=== PATIENT | female | born 1955 | race Caucasian/White ===

== ENCOUNTER 2025-06-26 09:08 | Outpatient (OUT) | payer MEDICARE, SELFPAY ==
--- OUTSIDE RECORDS SUMMARY | 2025-06-12 10:50 | XMS_ITS | Encounter Summary ---
Author Organization [facility] Address [address] [place] [address] Care Team Providers Care Plant Equipment Engineer Name Role Phone Cynthia Sy DO Unavailable [phone] Francie Whitten MD Primary Care Provider [phone] Mary Beth Dutta NURSE LDR Unavailable [phone] Reason for Visit * ReasonCommentsPre-op Visit Encounter Details DateTypeDepartmentCare Team (Latest Contact Info)Liwyvvtzvtj81/10/2025 10:50 AM ESTConsult STEFANY [facility] [address] [place] [address] Benjamin Mendoza DO [address] Seth Arriola, [facility]11 Pre-op examination; Complex ovarian cyst; Ovarian cyst, left; Pelvic pain in female; Family history of ovarian cancer; Enlarged ovary; Endometrial polyp Social History Tobacco UseTypesPacks/DayYears UsedDateSmoking Tobacco: NeverSmokeless Tobacco: NeverAlcohol UseStandard Drinks/WeekCommentsYes0 (1 standard drink = 0.6 oz pure alcohol)Social, vacation perhaps once a month caffeine intake: 4 cups of coffee B1300 Health LiteracyAnswerDate RecordedHow often do you need to have someone help you when you read instructions, pamphlets, or other written material from your doctor or pharmacy?Never06/13/2024Humiliation, Afraid, Rape, and Kick questionnaireAnswerDate RecordedWithin the last year, have you been afraid of your partner or ex-partner?No03/05/2023Within the last year, have you been humiliated or emotionally abused in other ways by your partner or ex-partner?No 03/05/2023Within the last year, have you been kicked, hit, slapped, or otherwise physically hurt by your partner or ex-partner?No03/05/2023Within the last year, have you been raped or forced to have any kind of sexual activity by your part ner or ex-partner?No03/05/2023Social Connection and Isolation PanelAnswerDate RecordedIn a typical week, how many times do you talk on the phone with family, friends, or neighbors?More than three times a week06/13/2024How often do you get together with friends or relatives?More than three times a week06/13/2024How often do you attend advent or zoroastrianism services?More than 4 times per year 06/13/2024o you belong to any clubs or organizations such as advent groups, unions, fraternal or athletic groups, or school groups?Yes06/13/2024How often do you attend meetings of the clubs or organizations you belong to?More than 4 times per year06/13/2024re you , , , , never , or living with a partner?Gimgnlv2406/13/2024UDIT-CAnswerDate RecordedQ1: How often do you have a drink containing alcohol?Monthly or less06/13/2024Q2: How many drinks containing alcohol do you have on a typical day when you are drinking?1 or Q3: How often do you have six or more drinks on one occasion?Never06/13/2024Overall Financial Resource Strain (CARDIA)AnswerDate RecordedHow hard is it for you to pay for the very basics like food, housing, medical care, and heating?Not hard at all06/13/2024HQ-2AnswerDate Recorded Patient Health Questionnaire-2 [id number] Occupational Health - Occupational Stress QuestionnaireAnswerDate RecordedDo you feel stress - tense, restless, nervous, or anxious, or unable to sleep at night because your mind is troubled all the time - these days?Not at all06/13/2024Exercise Vital SignAnswerDate RecordedOn average, how many days per week do you engage in moderate to strenuous exercise (like a brisk walk)?7 days06/13/2024On average, how many minutes do you engage in exercise at this level?60 min06/13/2024Hunger Vital SignAnswerDate RecordedWithin the past 12 months, you worried that your food would run out before you got the money to buymore.Never true06/13/2024 Within the past 12 months, the food you bought just didn't last and you didn't have money to get more.Never true06/13/2024RAPARE - TransportationAnswerDate RecordedIn the past 12 months, has lack of transportation kept you from medical appointments or from getting medications?No06/13/2024In the past 12 months, has lack of transportation kept you from meetings, work, or from getting things needed for daily living?No06/13/2024Housing Stability Vital SignAnswerDate RecordedIn the last 12 months, was there a time when you were not able to pay the mortgage or rent on time?No03/05/2023In the last 12 months, how many places have you lived?In the last 12 months, was there a time when you did not have a steady place to sleep or slept in [facility] (including now)?No 03/05/2023Housing Stability Vital SignAnswerDate RecordedIn the last 12 months, was there a time when you were not able to pay the mortgage or rent on time?No 06/13/2024In the past 12 months, how many times have you moved where you were living?t any time in the past 12 months, were you homeless or living in a snf (including now)?No06/13/2024CommentsNoSex and Gender InformationValueDate RecordedSex Assigned at NmsxxBwnybv32/05/2023 11:41 AM EDT Legal BapNrgsqs21/15/2023 7:26 PM EDTGender AdilwthvHihfoy13/15/2023 7:26 PM EDT Sexual LswzfdrxqslSynfgcek80/05/2023 11:41 AM EDTdocumented as of this encounter Last Filed Vital Signs Vital SignReadingTime TakenCommentsBlood Agsaisnc070/80108/12/2024 10:52 AM EST Pulse--Temperature--Respiratory Rate--Oxygen Saturation--Inhaled Oxygen Concentration--Ttccjv25.8 kg (213 lb 6.4 oz)06/12/2025 10:52 AM ESTHeight--Body Mass Index40.321 9:10 AM EDTdocumented in this encounter Progress Notes * Roz Rinaldi - 06/12/2025 10:50 AM EST Reason for Appointment: Patient ID: Darlene Carmona is a 70 y.o. female who presents for Pre-op Visit Patient presents today for Pre Op appointment. Patient is scheduled to undergo Da Alisia assisted Diagnostic Laparoscopy with Bilateral Salpingo-Oophorectomy, possible LI, possible FOE, and D&C Hysteroscopy, possible Myosure on 07/11/[address] Mendoza at [facility]. MEDICATIONS Current Outpatient Medications Medication Instructions aspirin 81 mg, Daily atorvastatin (LIPITOR) 10 mg, Oral, Daily Zopztrc-Efbscjyka-Pfowocy D (CALCIUM 1200+D3 PO) fluticasone (Flonase) 50 MCG/ACT nasal spray SPRAY 2 SPRAYS INTO EACH NOSTRIL IN THE MORNING SHAKE GENTLY Multiple Vitamins-Minerals (Centrum Silver 50+Women) tablet Multiple Vitamins-Minerals (EYE VITAMINS & MINERALS PO) Take by mouth ALLERGIES Allergies Allergen Reactions Shellfish Protein-Containing Drug Products Unknown Pedi-Pre Tape [place] [Wound Dressing Adhesive] Rash Tapes on skin too long causes rash PROBLEMS Active Ambulatory Problems Diagnosis Date Noted History of laparoscopic cholecystectomy 02/27/2023 Mixed hyperlipidemia 02/27/2023 BMI 40.0-44.9, adult ([facility] 03/06/2023 ABDIRIZAK (obstructive sleep apnea) 03/06/2023 Otalgia, left 04/08/2023 Resolved Ambulatory Problems Diagnosis Date Noted Abnormal mammogram 02/27/2023 Excessive daytime sleepiness 02/27/2023 Morbid obesity due to excess calories ([facility]) 02/27/2023 Other chronic pain 02/27/2023 Prediabetes 02/27/2023 Primary osteoarthritis involving multiple joints 02/27/2023 Past Medical History: Diagnosis Date Asymptomatic menopausal state BMI 39.0-39.9,adult Bronchitis Diverticulitis 04/05/2025 DVT (deep venous thrombosis) (HCC) DVT (deep venous thrombosis) ([facility]) 2014 Family history of malignant neoplasm of kidney Family history of malignant neoplasm of ovary Functional dyspepsia Gallstone, sludge, lap cholecystectomy Hemorrhoids 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 current use of anticoagulant Menopause present Obesity Obesity (BMI 30-39.9) Other disturbances of skin sensation Ovarian cyst 04/05/2025 Sinusitis Sleep apnea HISTORY PAST MEDICAL HISTORY SOCIAL HISTORY Past Medical History: Diagnosis Date Asymptomatic menopausal state BMI 39.0-39.9,adult Bronchitis Diverticulitis 04/05/2025 DVT (deep venous thrombosis) ([facility]) right distal lower leg right common femoral,superficial femoral, popliteal, post arthoscopic surgery of left knee DVT (deep venous thrombosis) ([facility]) 2014 Family history of malignant neoplasm of kidney Family history of malignant neoplasm of ovary Functional dyspepsia Gallstone, sludge, lap cholecystectomy Hemorrhoids History of torn meniscus of knee [facility] current use of anticoagulant Menopause present Obesity Obesity (BMI 30-39.9) Other disturbances of skin sensation Ovarian cyst 04/05/2025 Sinusitis Sleep apnea Social History Tobacco Use Smoking status: Never Smokeless tobacco: Never Vaping Use Vaping status: Never Used Substance Use Topics Alcohol use: Yes Comment: Social, vacation perhaps once a month caffeine intake: 4 cups of coffee Drug use: Never FAMILY HISTORY Family History Problem Relation Name Age of Onset Depression Mother Sue Marino Macular degeneration Mother Sue Marino Obesity Mother Sue Marino Ovarian cancer Mother Sue Marino Cancer Mother Sue Marino Heart disease Mother Sue Marino Miscarriages / Stillbirths Mother Sue Marino Vision loss Mother Sue Marino Alcohol abuse Father Bill Smithna, Sr. Other (renal cell carcinoma) Sister Kidney cancer Sister Colon cancer Brother Kidney cancer Brother Tuberculosis Maternal Grandmother Charlene Alpesh Walls Stroke Maternal Grandmother Charlene Betts Titi Colon cancer Maternal Grandfather SURGICAL HISTORY Past Surgical History: Procedure Laterality Date CHOLECYSTECTOMY COLONOSCOPY 08/27/2009 nl /Nena EGD 2014 Grillis MENISCECTOMY Left left/partial MN CLSR RECTOVAGINAL FISTULA ABDOMINAL APPROACH MN LAP,CHOLECYSTECTOMY 10/04/2014 sludge VENOGRAM 01/2015 with femoral TPA infusion WISDOM TOOTH EXTRACTION REVIEW OF SYSTEMS Review of Systems: Review of Systems Constitutional: Negative. HENT: Negative. Eyes: Negative. Respiratory: Negative. Cardiovascular: Negative. Gastrointestinal: Negative. Genitourinary: Positive for dyspareunia and pelvic pain. Musculoskeletal: Negative. Skin: Negative. Neurological: Negative. All other systems reviewed and are negative. Hematological: Negative. Endocrine: Negative. Allergic/Immunologic: Negative. OBJECTIVE Objective: Physical Exam Constitutional: Appearance: Normal appearance. She is well-developed. Cardiovascular: Rate and Rhythm: Normal rate and regular rhythm. Pulmonary: Effort: Pulmonary effort is normal. Breath sounds: Normal breath sounds. Abdominal: General: Bowel sounds are normal. There is no distension. Palpations: Abdomen is soft. Tenderness: There is no abdominal tenderness. There is no guarding or rebound. Musculoskeletal: General: No swelling. Normal range of motion. Right lower leg: No edema. Left lower leg: No edema. Neurological: Mental Status: She is alert and oriented to person, place, and time. Skin: General: Skin is warm and dry. Psychiatric: Mood and Affect: Mood normal. Behavior: Behavior normal. Vitals and nursing note reviewed. Exam conducted with a embroidery designer present. Vitals: Estimated body mass index is 39.87 kg/m?? as calculated from the following: Height as of 05/22/25: 5' 1 . Weight as of 05/22/25: 211 lb. BP: No LMP recorded. Patient is postmenopausal. ASSESSMENT & PLAN ICD-10-CM 1. Pre-op examination Z01.818 2. Complex ovarian cyst N83.299 3. Ovarian cyst, left N83.202 4. Pelvic pain in female R10.20 5. Family history of ovarian cancer Z80.41 6. Enlarged ovary N83.8 7. Endometrial polyp N84.0 Pre Op: Patient and spouse present for Pre-op visit today to review labs and ultrasound results. Explained to patient need for surgical procedure prior to hysterectomy. Patient is doing well but has complaints of pelvic pain, enlarged left ovary with complex ovarian cyst and endometrial polyps found via ultrasound. I have discussed conservative management vs. surgical management with the patient in detail and patient desires surgical management at this time. Patient will undergo Da Alisia assisted Diagnostic Laparoscopy with Bilateral Salpingo- Oophorectomy, possible LI, possible FOE, and D&C Hysteroscopy, possible Myosure on 07/11/2025. Surgical consents were signed, mmc was reviewed, and patient is to proceed to [facility] OR. === Ultrasound Performed on: 05/25/25 === US PELVIC COMPLETE W/ TV FINDINGS: Uterus 7.2 x 3.2 x 6.4 cm Endometrium 5 mm Right Ovary not seen Left Ovary 6.0 x 3.2 x 4.9 cm (see below) - Impression - Normal uterine orientation. Small amount of endometrial fluid, two mildly hyperechogenic nodules (5-13mm) likely endometrial polyps. Right ovary not visualized. Majority of the left ovary is comprised of a homogeneous nonshadowing mildly hyperechogenic area, with no significant cyst formation. IMPRESSION: 1. Enlarged left ovary, abnormal morphology though likely benign. 2. Endometrial findings, likely several polyp and/or polyp aggregates. COMMENT: Given the endometrial and left ovarian findings, pelvic MRI would be of assistance. TRANSCRIBED BY: ELECTRONICALLY SIGNED BY: Kendall Lee MD Follow Up: Patient is to follow up between 1-2 weeks post operative to assess proper healing and recovery fromprocedure. Will also discuss at that time options for further management. Documented by Shaila Clark LPN on behalf of: Benjamin Mendoza DO documented in this encounter Plan of Treatment DateTypeDepartmentCare Team (Latest Contact Info)Lqdpnuxsobw55/02/2025 9:30 AM ESTConsult STEFANY [facility] [address] [place] [id number] Francie Whitten MD [address] [place] [address] documented as of this encounter Visit Diagnoses Diagnosis Pre-op examination Complex ovarian cyst Ovarian cyst, left Other and unspecified ovarian cyst Pelvic pain in female Unspecified symptom associated with female genital organs Family history of ovarian cancer Family history of malignant neoplasm of ovary Enlarged ovary Other noninflammatory disorder of ovary, fallopian tube, and broad ligament Endometrial polyp Polyp of corpus uteri documented in this encounter Additional Health Concerns AssessmentNoted TimePHQ-9 Depression Total Score: 8:00 AM EDT documented as of this encounter Care Teams Team MemberRelationshipSpecialtyStart DateEnd Date Cynthia Sy DO [address] [facility] [address] [place] [address] PCP - [employer]12/01/20 Francie Whitten MD [address] [place], [place] [id number] PCP - GeneralFamily Medicine12/09/23 Mary Beth Dutta NP [address] [place], [place] [id number] Nurse PractitionerFamily Medicine12/09/23documented as of this encounter
--- OUTSIDE RECORDS SUMMARY | 2025-06-26 09:13 | XMS_ITS | Clinical Summary ---
Author Organization [employer] Sys [employer] Address [id number] [address] [place] [address] Care Team Providers Care Food And Beverage Attendant Name Role Phone Gorge Ramos MD Primary Care Provider [phone] Immunizations ImmunizationAdministration DatesNext DueCOVID-19, mRNA, LNP-S, PF, 30mcg/0.3mL Dose10/13/2020,09/22/2020 Family History Medical HistoryRelationNameCommentsBreast cancerNeg Hx Social History Tobacco UseTypesPacks/DayYears UsedDateSmoking Tobacco: Never AssessedChildcare AnswerDate HwniqiwaFvpfdccexDtkfkll80/12/2019EmploymentAnswerDate Recorded DyppgctbveEtdxozl84/12/2019Purpose - LifeAnswerDate RecordedPurpose and direction in fgxvHldmjqc37/11/2021CommentsUnknownSex and Gender InformationValueDate RecordedSex Assigned at BirthNot on fileLegal SexFemale 03/08/2015 11:22 AM EDTGender IdentityNot on fileSexual OrientationNot on file Plan of Treatment Health MaintenanceDue DateLast DoneCommentsDepression Mymlaxhfs47/19/1967Tobacco Tthqvghzx45/19/1967Adult BMI Tezgnyqfg57/19/1973Fall Risk Bckxzmjur36/19/2020 COVID-19 Vaccine ( season)503/, 09/22/2020Influenza Dqgcdbg32/09/2018, 05/08/2018, 04/24/2017, Additional history exists DTaP,Tdap and Td Vaccines (2 - Td or Tdap)7004/24/2017, 01/22/2002RSV ( or age 60+ yrs) (1 - 1-dose 75+ series)2030Zoster (Shingles) MrhsdwaQeyktyipb21/06/2019, 08/15/2018, 07/18/2015 Medical Devices Not on file Insurance Care Teams Team MemberRelationshipSpecialtyStart DateEnd Gorge Ramos MD [address] [place] [address] PCP - GeneralFamily Medicine12/12/16
--- OUTSIDE RECORDS SUMMARY | 2025-06-26 09:13 | XMS_ITS | Clinical Summary ---
Author Organization [facility] Address [address] [place] [address] Care Team Providers Care Chain Saw Driver Name Role Phone Cynthia Sy DO Unavailable [phone] Francie Whitten MD Primary Care Provider [phone] Mary Beth Dutta HEAD CORRECTION OFFICER Unavailable [phone] Allergies Active AllergyReactionsCriticalityNoted DateCommentsWound Dressing AdhesiveRash Low07/10/2023 Tapes on skin too long causes rash Shellfish Protein-Containing Drug XuuhjhsaKwvxcsj53/28/2023 Medications MedicationSigDispense QuantityRefillsLast FilledStart DateEnd DateStatus Multiple Vitamins-Minerals (Centrum Silver 50+Women) tablet Active aspirin 81 MG EC tablet Take 81 mg by mouth in the morning.Active fluticasone (Flonase) 50 MCG/ACT nasal spray Indications:Otalgia, leftSPRAY 2 SPRAYS INTO EACH NOSTRIL IN THE MORNING SHAKE GENTLY 16 mL 1103Active Multiple Vitamins-Minerals (EYE VITAMINS & MINERALS PO) Take by mouthActive Csbyfdq-Ryzalizof-Jmyfvix D (CALCIUM 1200+D3 PO) 06/10/2024ctive atorvastatin (Lipitor) 10 MG tablet Indications:Mixed hyperlipidemiaTAKE 1 TABLET (10 MG) BY MOUTH DAILY. 90 tablet 5Active Active Problems ProblemNoted DateDiagnosed DateOtalgia, left04/08/2023MI 40.0-44.9, adult 03/06/2023OSA (obstructive sleep apnea)03/06/2023 Overview (03/06/2023): compliant with results improve, over 97% compliant fax note to [phone] attn PAP DEPT I have reviewed the objective evidence of adherence to therapy History of laparoscopic jkwjepzwcvajxaf86/28/2023Mixed edvrbgxrldbxss49/28/2023 Assessment & Plan (04/05/2025 11:43 AM EDT): -on a statin Resolved Problems ProblemNoted DateDiagnosed DateResolved DateAbnormal bmytlrbxu15/28/2023 03/06/2023Excessive daytime rpddijjnqf95Morbid obesity due to excess myrakdtd17Other chronic pain Nntwcsjengj80rimary osteoarthritis involving multiple joints Encounters DateTypeDepartmentCare XjpaEqsctkzvlon14/11/2025Telephone [facility] [place] [address] [facility] [place] [address] Francie Whitten MD 06/12/2025 10:50 AM ESTConsult [facility] [address] [place] [phone] Benjamin Mendoza DO Pre-op examination; Complex ovarian cyst; Ovarian cyst, left; Pelvic pain in female; Family history of ovarian cancer; Enlarged ovary; Endometrial polyp06/05/20250338Siibqi45/27/2025Telephone [facility] [address] [facility] [place] [address] Mary Beth Dutta NP 05/25/2025 9:30 AM EDTAncillary Procedure [facility] [address] [place] [address] Ovarian cyst, left; Complex ovarian cyst05/24/20250325Wbuypu51/21/2025External Result Encounter [facility] External Department Unsolicited Benjamin Mendoza DO 05/22/2025 8:50 AM EDTConsult [facility]OM[facility] [address] [place] [address] Benjamin Mendoza DO Ovarian cyst, left; Complex ovarian cyst; Pelvic pain in female; Family history of ovarian kejxka6305/22/2025amboo flowsheet [facility] [address] [place] [address] Benjamin Mendoza DO 05/17/20258260Sdkhee92/08/2025Telephone [facility] [address] [facility] [place] [address] Francie Whitten MD 04/09/2025Refill [facility] [address] [facility] [place] [place] [address] Mary Beth Dutta NP Mixed wrbfweaihjsssn19/03/2025 12:45 PM EDTAncillary Procedure [facility] [address] [place] [address] Left lower quadrant abdominal pain04/05/2025 11:00 AM EDTOffice Visit [facility] [address] [facility] [place] [phone] Mary Beth Dutta NP Left lower quadrant abdominal pain (Primary Dx); Mixed hyperlipidemia ; Body mass index (BMI) 38.0-38.9, adult; Obesity, class Results Follow-Up [facility] [address] [facility] [place] [phone] abdomen pelvis wo IV contrast, Comprehensive metabolic panel, CBC and differential, POCT Urinalysis oibfqyap03/03/2025amboo flowsheet [facility] [address] [facility] [place] [place] [phone] Mary Beth Dutta NP 04/05/20259475Lprbrp87/02/2025Travelfrom Last 3 Months Immunizations ImmunizationAdministration DatesNext DueHep A / Hep B12/01/2022,12/13/2021, 11/13/2021Influenza Whole05/25/2013Influenza, High Dose Seasonal, Preservative Free04/24/2024,05/04/2019Influenza, High-dose Seasonal, Quadrivalent, Preservative Free04/13/2022Influenza, Seasonal, Quadrivalent, Adjuvanted 05/14/2023,05/09/2021Influenza, injectable, vejopedydgau52/29/2014Influenza, injectable, quadrivalent, preservative free05/08/2018,04/24/2017,05/24/2016 Pneumococcal Conjugate PCV 131Pneumococcal Polysaccharide PPSV23 06/05/2021SV, recombinant, protein subunit RSVpreF, adjuvant reconstitu, 120mcg/0.5mL, PF (Arexvy)06/10/2023Td (adult), 5 Lf tetanus toxoid, preservative free, rfhajohr07/22/8817Pgey43/22/2017Zoster, Ztegzketoyb05/06/2019,08/15/2018 Zoster, live07/18/2015 Family History Medical HistoryRelationNameCommentsColon cancerBrotherKidney cancerBrother Alcohol abuseFatherBill Marino, Sr.Colon cancerMaternal GrandfatherStroke Maternal GrandmotherFlorence Alpesh WallsTuberculosisMaternal Grandmother Charlene WallsCancerMotherAlena HannaDepressionMotherAlena HannaHeart diseaseMotherAlena HannaMacular degenerationMotherAlena HannaMiscarriages / StillbirthsMotherAlena HannaObesityMotherAlena HannaOvarian cancerMotherAlena HannaVision lossMotherAlena HannaKidney cancerSisterrenal cell carcinomaSister RelationNameStatusCommentsBrotherDaughterAliveFatherBill Marino, Sr. Maternal GrandfatherMaternal GrandmotherFlorence Alpesh WallsMotherSue Marino DeceasedSisterDeceasedSonAlive Social History Tobacco UseTypesPacks/DayYears UsedDateSmoking Tobacco: NeverSmokeless Tobacco: Never Tobacco Cessation:Counseling Given: Not Answered Alcohol UseStandard Drinks/WeekCommentsYes0 (1 standard drink = 0.6 [...] times a week06/13/2024How often do you attend anabaptist or zoroastrian services?More than 4 times per year 06/13/2024o you belong to any clubs or organizations such as anabaptist groups, unions, fraternal or athletic groups, or school groups?Yes06/13/2024How often do you attend meetings of the clubs or organizations you belong to?More than 4 times per year06/13/2024re you , , , , never , or living with a partner?Vbmqsaq9106/13/2024UDIT-CAnswerDate RecordedQ1: How often do you have a [...] hard at all06/13/2024HQ-2AnswerDate Recorded Patient Health Questionnaire-2 Eulsy922[facility] [place] of Occupational Health - Occupational Stress QuestionnaireAnswerDate [...] steady place to sleep or slept in ashelter (including now)?No 03/05/2023Housing Stability Vital SignAnswerDate RecordedIn the last 12 months, was there a time when you were not able to pay the mortgage or rent on time?No 06/13/2024In the past 12 months, how many times have you moved where you were living?011/11/2024At any time in the past 12 months, were you homeless or living in a alf (including now)?No4CommentsNoSex and Gender InformationValueDate RecordedSex Assigned at RezmyYtjpgp62/05/2023 11:41 AM EDT Legal ZpeYobhud98/15/2023 7:26 PM EDTGender KkfuhoapCcweki35/15/2023 7:26 PM EDT Sexual NjojtoheqwnLjkfnojz57/05/2023 11:41 AM EDT Last Filed Vital Signs Vital SignReadingTime TakenCommentsBlood Euajybcu154/8011 10:52 AM EST Cpfmu2100 11:01 AM UDNElclggscvch01.1 ??C (96.9 ??F)03/06/2023 8:31 AM EDTRespiratory Tofj398612/09/2023 1:00 PM EDTOxygen Vatjlcyyni91%04/05/2025 11:01 AM EDTInhaled Oxygen Concentration--Xdldna41.8 kg (213 lb 6.4 oz)06/12/2025 10:52 AM QMWOrjkiz748.9 cm (5' 1 )05/22/2025 9:10 AM EDTBody Mass Index40.32 05/22/2025 9:10 AM EDT Plan of Treatment DateTypeDepartmentCare Team (Latest Contact Info)Djakqqfuzir94/02/2025 9:30 AM ESTConsult [facility] [address] [place] [phone] Francie Whitten MD [address] [place] [address] Health MaintenanceDue DateLast DoneCommentsCT Cjfxgqnrmrxj1955FIT 1955FOBT1955 1890Uksudlisbdvlr28/19/2876Eotqknpsqny40/25/ COVID-19 Vaccine ( season)/11/2024, 11/08/2024, 04/24/2024, Additional history existsMedicare Annual Wellness (AWV)01/11/2026 01/11/2025, 01/11/2025, 12/09/2023, Additional history bllwgeRztfjlzcw07/03/2026 02/02/2025, 02/01/2024, 01/29/2023, Additional history existsColorectal Cancer Nphfzcfak62/15/2027FIT-DNA7003/17/2024, 03/13/2021, 03/03/2018, Additional history existsPneumococcal Vaccine: 65+ UpqhjJivgpbkaq75/03/2021, 05/21/2020Influenza JszxqnrAgmefvgkr34/04/2025, 04/24/2024, 05/14/2023, Additional history exists Procedures Procedure NamePriorityDate/TimeAssociated DiagnosisCommentsUS PELVIC COMPLETE W/ GNKbjyhfd94/23/2025 10:14 AM EDT Ovarian cyst, left Complex ovarian cyst [place] 695Gxhrszv08/21/2025 9:11 AM EDT HCG, TOTAL, UJKrzraqz95/21/2025 9:11 AM EDT CVFXtdcfsy66/21/2025 9:11 AM EDT ALPHA FETOPROTEIN, TUMOR JIIOQZCkjczyg04/21/2025 9:11 AM EDT LACTATE DEHYDROGENASE, EPWJNQYHSONocyvrn75/21/2025 9:[address] ABDOMEN PELVIS WO IV CMLETNASEQNY57/03/2025 12:51 PM EDT Left lower quadrant abdominal pain POCT URINALYSIS VIEYVNUOOelazbo56/03/2025 11:40 AM EDT Left lower quadrant abdominal pain CBC (INCLUDES DIFF/PLT)Guklfxs0204/05/2025 11:18 AM EDT Left lower quadrant abdominal pain COMPREHENSIVE METABOLIC GYIVZVcjetuw34/10/2024 11:18 AM EDT Left lower quadrant abdominal pain BI MAMMOGRAM SCREENING TOMOSYNTHESIS KCIIKJXTXNfzkyep41/03/2025 8:47 AM EDT Encounter for screening mammogram for malignant neoplasm of breast LAB [facility]?? COLON CANCER AMBWZWTuhlcvi01/15/2024 10:05 AM EDT Encounter for screening for malignant neoplasm of colon from Last 3 Months or Most Recently Relevant to Health Maintenance Results * US Pelvis w/ TV (05/25/2025 10:14 AM EDT)Anatomical RegionLateralityModality PelvisUltrasoundSpecimen (Source)Anatomical Location / LateralityCollection Method / VolumeCollection TimeReceived Time05/25/2025 3:13 PM EDT Impressions 05/26/2025 7:27 AM EDT Normal uterine orientation. Small amount of endometrial fluid, two mildly hyperechogenic nodules (5-13mm) likely endometrial polyps. Right ovary not visualized. ? Majority of the left ovary is comprised of a homogeneous nonshadowing mildly hyperechogenic area, with no significant cyst formation. IMPRESSION: 1. ??Enlarged left ovary, abnormal morphology though likely benign. 2. ??Endometrial findings, likely several polyp and/or polyp aggregates. COMMENT: Given the endometrial and left ovarian findings, pelvic MRI would be of assistance. TRANSCRIBED BY: ? ELECTRONICALLY SIGNED BY: Kendall Lee MD Narrative 05/26/2025 7:27 AM EDT FINDINGS: Uterus ? 7.2 x 3.2 x 6.4 cm Endometrium ??5 mm Right Ovary ?not seen Left Ovary ?6.0 ??x 3.2 ??x 4.9 cm (see below) Procedure Note Kendall Lee MD - 05/26/2025 FINDINGS: Uterus 7.2 x 3.2 x 6.4 cm Endometrium 5 mm Right Ovary not seen Left Ovary 6.0 x 3.2 x 4.9 cm (see below) IMPRESSION: Normal uterine orientation. Small amount of endometrial fluid, twomildly hyperechogenic nodules (5-13mm) likely endometrial polyps. Right ovary not visualized. Majority of the left ovary is comprised of a homogeneous nonshadowingmildly hyperechogenic area, with no significant cyst formation. IMPRESSION: 1. Enlarged left ovary, abnormal morphology though likely benign. 2. Endometrial findings, likely several polyp and/or polyp aggregates. COMMENT: Given the endometrial and left ovarian findings, pelvic MRI wouldbe of assistance. TRANSCRIBED BY: ELECTRONICALLY SIGNED BY: Kendall Lee MD Authorizing ProviderResult TypeResult StatusCorey Reji [facility] US PROCEDURESFinal Result * AFP tumor marker (05/23/2025 9:11 AM EDT)ComponentValueRef RangeTest Method Analysis TimePerformed AtPathologist SignatureALPHA FETOPROTEIN, TUMOR MARKER 2.6ng/mLQUESTComment: Reference Range: <6.1 The use of AFP as a tumor marker in females is not recommended. This test was performed using the Dov Roxann chemiluminescent method. Values obtained from different assay methods cannot be used interchangeably. AFP levels, regardless of value, should not be interpreted as absolute evidence of the presence or absence of disease. Specimen (Source)Anatomical Location / LateralityCollection Method / Volume Collection TimeReceived Time05/23/2025 9:11 AM EDT1 9:11 AM EDT Narrative Resulting Agency Comment Performing Organization Information ?Site ID: QPT ?Name: [employer] [facility] ?Address: [address] [place] [phone] ?Director: Bj Ambriz MD Authorizing ProviderResult TypeResult StatusCorey Reji [facility] BLOOD ORDERABLES Final ResultPerforming OrganizationAddressCity/State/ZIP CodePhone Number QUEST * [place] 125 (05/23/2025 9:11 AM EDT)ComponentValueRef RangeTest MethodAnalysis Time Performed AtPathologist SignatureCA 1257<35 U/mLQUESTComment: This test was performed using the Siemens Chemiluminescent method. Values obtained from different assay methods cannot be used interchangeably. CA 125 levels, regardless of value, should not be interpreted as absolute evidence of the presence or absence of disease. Specimen (Source)Anatomical Location / LateralityCollection Method / Volume Collection TimeReceived Time05/23/2025 9:11 AM EDT1 9:11 AM EDT Narrative Resulting Agency Comment Performing Organization Information ?Site ID: QPT ?Name: [employer] [facility] ?Address: [address] [place] [address] ?Director: Bj Ambriz MD Authorizing ProviderResult TypeResult StatusCorey Reji [facility] BLOOD ORDERABLES Final ResultPerforming OrganizationAddWills [facility] CodePhone Number [facility] * hCG, quantitative, (05/23/2025 9:11 AM EDT)ComponentValueRef Range Test MethodAnalysis TimePerformed AtPathologist SignatureHCG, TOTAL, QN<5 mIU/mLQUESTComment: ?Reference Range Non or premenopausal <5 Postmenopausal <10 Values from different assay methods may vary. The use of this assay to monitor or to diagnose patients with cancer or any condition unrelated to has not been cleared or approved by the FDA or the color blender of the assay. Specimen (Source)Anatomical Location / LateralityCollection Method / Volume Collection TimeReceived Time05/23/2025 9:11 AM EDT1 9:11 AM EDT Narrative Resulting Agency Comment Performing Organization Information ?Site ID: QPT ?Name: [employer] [facility] ?Address: [address] [place] [address] ?Director: Bj Ambriz MD Authorizing ProviderResult TypeResult StatusCorey Reji [facility] BLOOD ORDERABLES Final ResultPerforming OrganizationAddressty/State/[facility] CodePhone Number [facility] * Lactate dehydrogenase, isoenzymes (05/23/2025 9:11 AM EDT)ComponentValueRef RangeTest MethodAnalysis TimePerformed AtPathologist MsvmxomtbXW64844 - 32 % XHOSWXY99067 - 42 %PMRRIMM42699 - 30 %AAAQKMH566 - 13 %BBOZWYW114 - 18 %QUEST INTERPRETATIONCANCELEDQUESTComment:Result canceled by the ancillary.Specimen (Source)Anatomical Location / LateralityCollection Method / VolumeCollection TimeReceived Time05/23/2025 9:11 AM EDT1 9:11 AM EDT Narrative Resulting Agency Comment Performing Organization Information ?Site ID: AMD ?Name: [employer] [place] ?Address: [address] [place] [address] Dr [place], [place] ?Director: Isaac Patterson M.D.,PhD Authorizing ProviderResult TypeResult StatusCorey Reji [facility] BLOOD ORDERABLES Final ResultPerforming OrganizationAddressty/State/ZIP CodePhone Number [facility] * (ABNORMAL) CEA (05/23/2025 9:11 AM EDT)ComponentValueRef RangeTest Method Analysis TimePerformed AtPathologist SignatureCEA4.4(H)See Note: ng/mLQUEST Comment: Reference Range: Non-Smoker: <2.5 Smoker: <5.0 This test was performed using the Siemens chemiluminescent method. Values obtained from different assay methods cannot be used interchangeably. CEA levels, regardless of value, should not be interpreted as absolute evidence of the presence or absence of disease. Specimen (Source)Anatomical Location / LateralityCollection Method / Volume Collection TimeReceived Time05/23/2025 9:11 AM EDT1 9:11 AM EDT Narrative Resulting Agency Comment Performing Organization Information ?Site ID: QPT ?Name: [employer] [facility] ?Address: [address] [place] [phone] ?Director: Bj Ambriz MD Authorizing ProviderResult TypeResult StatusCorey Reji [facility] BLOOD ORDERABLES Final ResultPerforming OrganizationAddressCity/State/ZIP CodePhone Number [facility] * CT abdomen pelvis wo IV contrast (04/05/2025 12:51 PM EDT)Anatomical Region LateralityModalityBody, Pelvis, AbdomenComputed TomographySpecimen (Source) Anatomical Location / LateralityCollection Method / VolumeCollection Time Received Time04/05/2025 1:04 PM EDT Impressions 04/05/2025 1:10 PM EDT Diverticulosis, distal descending colon and sigmoid colon with acute diverticulitis. 6.1 x 3.5 cm left adnexal cyst, most likely ovarian in etiology. Grade 1 L4 spondylolisthesis. Cholecystectomy. All CT scans at this facility use dose modulation, iterative reconstruction, and/or weight based dosing when appropriate to reduce radiation dose to as low as reasonably achievable. ELECTRONICALLY SIGNED BY: Gustavo Zamora MD Narrative 04/05/2025 1:[address] of the Abdomen and Pelvis without intravenous contrast medium History: Left lower quadrant pain since weekend. Technical Factors: CT imaging of the abdomen and pelvis were obtained and formatted as 5 mm contiguous axial images from the domes of the diaphragm to the symphysis pubis. ??Sagittal and coronal reconstructions were also obtained. Comparison: None.. Findings: Lower chest: Cardiac size normal. No pericardial effusion. No coronary artery calcification. Scarring versus subsegmental atelectatic change, right lung base. Liver: ??Normal in size, shape, and attenuation. ?? Bile Ducts: ??Normal in caliber. Gallbladder: Surgically absent. Pancreas: ??Normal without masses, cysts, ductal dilatation or calcification. Spleen: ??Normal in size without masses or calcifications. ??No splenules. Kidneys: ??Normal in size and enhancement. ??No hydronephrosis, masses, or stones. Adrenals: ??Normal. Small bowel: ??Normal in caliber. Appendix: ??Normal. Colon: ??Normal in caliber. Diverticular change distal descending colon and proximal sigmoid colon with mild pericolonic fat stranding at junction of descending and sigmoid colon (series 2, images 46through 56, series 300, images 42 through 50). Peritoneum: ??No ascites, free air, or fluid collections. Vessels: ??Aorta normal in course and caliber. ?? Portal vein, splenic vein, superior mesenteric vein are patent. Lymph nodes: ?? Retroperitoneal: ??No enlarged retroperitoneal lymph nodes. Mesenteric: ??No enlarged mesenteric lymph nodes. Pelvic: No enlarged pelvic lymph nodes. Ureters: Normal in course and caliber. No calcifications. Bladder: No wall thickening. Partially decompressed. Reproductive organs: 6.1 x 3.5 cm left adnexal cyst. Abdominal Wall: ??No hernia identified. No diastasis of rectus musculature. ?? No edema or masses. Bones: ??No bone lesions. 4 mm anterolisthesis L4 on L5.. No post operative changes. Procedure Note Gustavo Zamora MD - 04/05/2025 CT of the Abdomen and Pelvis without intravenous contrast medium History: Left lower quadrant pain since weekend. Technical Factors: CT imaging of the abdomen and pelvis were obtained and formatted as 5 mm contiguous axial images from the domes of the diaphragm to the symphysispubis. Sagittal and coronal reconstructions were also obtained. Comparison: None.. Findings: Lower chest: Cardiac size normal. No pericardial effusion. No coronaryartery calcification. Scarring versus subsegmental atelectatic change,right lung base. Liver: Normal in size, shape, and attenuation. Bile Ducts: Normal in caliber. Gallbladder: Surgically absent. Pancreas: Normal without masses, cysts, ductal dilatation orcalcification. Spleen: Normal in size without masses or calcifications. No splenules. Kidneys: Normal in size and enhancement. No hydronephrosis, masses, orstones. Adrenals: Normal. Small bowel: Normal in caliber. Appendix: Normal. Colon: Normal in caliber. Diverticular change distal descending colon and proximal sigmoid colon with mild pericolonic fat stranding at junction of descending and sigmoid colon (series 2, images 46 through 56, series 300,images 42 through 50). Peritoneum: No ascites, free air, or fluid collections. Vessels: Aorta normal in course and caliber. Portal vein, splenic vein,superior mesenteric vein are patent. Lymph nodes: Retroperitoneal: No enlarged retroperitoneal lymph nodes. Mesenteric: No enlarged mesenteric lymph nodes. Pelvic: No enlarged pelvic lymph nodes. Ureters: Normal in course and caliber. No calcifications. Bladder: No wall thickening. Partially decompressed. Reproductive organs: 6.1 x 3.5 cm left adnexal cyst. Abdominal Wall: No hernia identified. No diastasis of rectus musculature. No edema or masses. Bones: No bone lesions. 4 mm anterolisthesis L4 on L5.. No post operative changes. IMPRESSION: Diverticulosis, distal descending colon and sigmoid colon with acute diverticulitis. 6.1 x 3.5 cm left adnexal cyst, most likely ovarian in etiology. Grade 1 L4 spondylolisthesis. Cholecystectomy. All CT scans at this facility use dose modulation, iterativereconstruction, and/or weight based dosing when appropriate to reduceradiation dose to as low as reasonably achievable. ELECTRONICALLY SIGNED BY: Gustavo Zamora MD Authorizing ProviderResult TypeResult StatusSaraInland Valley Regional Medical Centerpfer NPIMG CT PROCEDURES Final Result * POCT Urinalysis dipstick (04/05/2025 11:40 AM EDT)ComponentValueRef RangeTest MethodAnalysis TimePerformed AtPathologist SignatureColor, UAYellowClarity, UA ClearGlucose, UANegativeNegative - 2000(110) ++++ mg/dLBilirubin, UANegative Negative - 4(70) +++ mg/dLKetones, UANegativeNegative - 160(16) ++++ mg/dLSpec Grav, UA1.0001 - 1.03Blood, UANegativeNegative - 50 Gian/mcLpH, UA6.55 - 9 Protein, UANegativeNegative - 2000(20) ++++ mg/dLUrobilinogen, UA0.20.2 - 12 mg/dLLeukocytes, UANegativeNegative - 500+++ Juan Ramon/mcLNitrite, UANegative Negative - PositiveSpecimen (Source)Anatomical Location / LateralityCollection Method / VolumeCollection TimeReceived HnpxKzvfu65/03/2025 11:40 AM EDT Narrative Authorizing ProviderResult TypeResult StatusSaBayCare Alliant HospitalPOINT OF CARE TEST ENTER/EDIT ORDERABLESFinal Result * CBC and differential (04/05/2025 11:18 AM EDT)ComponentValueRef RangeTest MethodAnalysis TimePerformed AtPathologist SignatureWHITE BLOOD CELL COUNT6.2 3.8 - 10.8 Thousand/uLQUESTRED BLOOD CELL COUNT4.253.80 - 5.10 Million/uLQUEST FJUPSRNALD57.911.7 - 15.5 g/lNVIJUUTJBBSRMCQE70.135.0 - 45.0 %LFQMEQTP55.480.0 - 100.0 eHQWOSDGKC06.427.0 - 33.0 nfVWRZYKYXO45.232.0 - 36.0 g/dLQUESTComment: For adults, a slight decrease in the calculated MCHC value (in the range of 30 to 32 g/dL) is most likely not clinically significant; however, it should be interpreted with caution in correlation with other red cell parameters and the patient's clinical condition. RDW13.911.0 - 15.0 %QUESTPLATELET CXIKZ558201 - 400 Thousand/uLQUESTMPV9.97.5 - 12.5 fLQUESTABSOLUTE NEUTROPHILS3,8691,500 - 7,800 cells/uLQUESTABSOLUTE LYMPHOCYTES1,426462 - 3,900 cells/uLQUESTABSOLUTE UNPIAOOZH078159 - 950 cells/uL QUESTABSOLUTE CDWEPKSDSLT74097 - 500 cells/uLQUESTABSOLUTE BQHPGYBZT565 - 200 cells/zAXMPXGLARVPZKUHRL62.4%PYTHDOZPPMEYRDQO15.5%QUESTMONOCYTES8.0%QUEST EOSINOPHILS2.1%QUESTBASOPHILS1.0%QUESTSpecimen (Source)Anatomical Location / LateralityCollection Method / VolumeCollection TimeReceived TimeBloodVenous blood specimen / Szupwtd9504/05/2025 11:18 AM EDT04/05/2025 11:18 AM EDT Narrative Resulting Agency Comment Performing Organization Information ?Site ID: QPT ?Name: [employer] [facility] ?Address: [address] [place] [phone] ?Director: Bj Ambriz MD Authorizing ProviderResult TypeResult StatusSalinda Dutta KRISTI BLOOD ORDERABLES Final ResultPerforming OrganizationAddressCity/State/ZIP CodePhone Number QUEST * Comprehensive metabolic panel (04/05/2025 11:18 AM EDT)ComponentValueRef Range Test MethodAnalysis TimePerformed AtPathologist TbygbrmjeYyjzvly9145 - 99 mg/dLQUESTComment: ? Fasting reference interval RQR783 - 25 mg/dLQUESTCreatinine0.870.60 - 1.00 mg/gFTWECAEAAW28> OR = 60 mL/min/1.45k7ZPTBIJVH/CREATININE RATIOSEE NOTE:6 - (calc)QUESTComment: ?? Not Reported: BUN and Creatinine are within ?? reference range. ? Kdfjae855893 - 146 mmol/LQUESTPotassium, Bld4.23.5 - 5.3 mmol/KXOUZLSosqlzds496 98 - 110 mmol/LQUESTCarbon Tmkcayx7436 - 32 mmol/LQUESTCalcium9.28.6 - 10.4 mg/dLQUESTPROTEIN, TOTAL6.96.1 - 8.1 g/dLQUESTALBUMIN4.53.6 - 5.1 g/dLQUEST GLOBULIN2.41.9 - 3.7 g/dL (calc)QUESTALBUMIN/GLOBULIN RATIO1.91.0 - 2.5 (calc) QUESTBILIRUBIN, TOTAL0.70.2 - 1.2 mg/dLQUESTALKALINE ABSCILOJZPB5231 - 153 U/L JVEYTYEL2376 - 35 U/PJCDBDDEY359 - 29 U/LQUESTSpecimen (Source)Anatomical Location / LateralityCollection Method / VolumeCollection TimeReceived TimeBlood Venous blood specimen / Eczlzme7204/05/2025 11:18 AM EDT04/05/2025 11:18 AM EDT Narrative Resulting Agency Comment Performing Organization Information ?Site ID: QPT ?Name: [employer] [facility] ?Address: [address] [place] [phone] ?Director: Bj Ambriz MD Authorizing ProviderResult TypeResult StatusSauniversity hospitals [facility] BLOOD ORDERABLES Final ResultPerforming OrganizationAddressCity/State/ZIP CodePhone Number QUEST * Bilateral screening mammogram with tomosynthesis (02/02/2025 8:47 AM EDT) Anatomical RegionLateralityModalityBreastBilateralMammographySpecimen (Source) Anatomical Location / LateralityCollection Method / VolumeCollection Time Received Time02/02/2025 11:02 AM EDT Impressions 02/02/2025 11:06 AM EDT Impression: No specific evidence of malignancy seen in either breast. BIRADS 2 - Benign Findings DENSITY: The breasts are almost entirely fatty. FOLLOW-UP: Routine Screening Mammogram ELECTRONICALLY SIGNED BY: Ancelmo Rangel M.D. Narrative 02/02/2025 11:06 AM EDT Examination: BI MAMMOGRAM SCREENING TOMOSYNTHESIS BILATERAL Clinical History: screening Technique: Screening digital mammography study of both breasts was performed with 2-D and 3-D tomosynthesis imaging. Study was compared to the prior exam dated 02/01/2024. Findings: There is no evidence of interval dominant spiculated mass, grouped microcalcifications, or skin thickening which would be suggestive of malignancy. ?? Procedure Note Ancelmo Rangel MD - 02/02/2025 Examination: BI MAMMOGRAM SCREENING TOMOSYNTHESIS BILATERAL Clinical History: screening Technique: Screening digital mammography study of both breasts wasperformed with 2-D and 3-D tomosynthesis imaging. Study was compared tothe prior exam dated 02/01/2024. Findings: There is no evidence of interval dominant spiculated mass,grouped microcalcifications, or skin thickening which would be suggestiveof malignancy. IMPRESSION: Impression: No specific evidence of malignancy seen in either breast. BIRADS 2 - Benign Findings DENSITY: The breasts are almost entirely fatty. FOLLOW-UP: Routine Screening Mammogram ELECTRONICALLY SIGNED BY: Ancelmo Rangel M.D. Authorizing ProviderResult TypeResult StatusSaraKaiser Permanente Medical Center NPIM BI PROCEDURES Final Result * Cologuard?? colon cancer screening (03/17/2024 10:05 AM EDT)ComponentValueRef RangeTest MethodAnalysis TimePerformed AtPathologist SignatureNONINV COLON CA DNA+OCC BLD SCRN STL-BMVNvxwosacRxhqbgzh05/20/2024 8:45 PM EDTEXNurseBuddy (CLIA #:[id number])Comment: NEGATIVE TEST RESULT. A negative Cologuard result indicates a low likelihood that a colorectal cancer (CRC) or advanced adenoma (adenomatous polyps with more advanced pre-malignant features) ??is present. The chance that a person with a negative Cologuard test has a colorectal cancer is less than 1in 1500 (negative predictive value >99.9%) or has an advanced adenoma is less than 5.3% (negative predictive value 94.7%). These data are based on a prospective cross-sectional study of 10,000individuals at average risk for colorectal cancer who were screened with both Cologuard and colonoscopy. (Tad Scott. et al, N Engl J Med 2014;370(14):4118-4835) The normal value (reference range) for this assay is negative. COLOGUARD RE-SCREENING RECOMMENDATION: Periodic colorectal cancer screening is an important part ofpreventive healthcare for asymptomatic individuals at average risk for colorectal cancer. ??Following a negative Cologuard result, the [place] [employer] Society and U.S. Multi-Society Task Force screening guidelines recommend a Cologuard re-screening interval of 3 years. References: [place] [employer] Guideline for Colorectal Cancer Screening: https://www.cancer.or g/cancer/bfiok-bfziyx-hcptge/mfhnkcnks-fcjvjguui-aaxplrx/acs-recommendations.htm serenity WOOD, Nish MAYER, Corinna DOMINGO, Colorectal Cancer Screening: Recommendations for Physicians and Patients from the U.S. Multi-Society Task Force on Colorectal Cancer Screening , Am J Gastroenterology 2017; 112:5413-5451. TEST DESCRIPTION: Composite algorithmic analysis of stool DNA-biomarkers with hemoglobin immunoassay. ?? Quantitative values of individual biomarkers are not reportable and are not associated with individual biomarker result reference ranges. Cologuard is intended for colorectal cancer screening ofadults of either sex, 45 years or older, who are at average-risk for colorectal cancer (CRC). Cologuard has been approved for use by the U.S. FDA. The performance of Cologuard was established in a cross sectional study of average-risk adults aged 50-84. Cologuard performance in patients ages 45 to 49 years was estimated by sub-group analysis of near-age groups. Colonoscopies performed for a positive result may find as the most clinically significant lesion: colorectal cancer [4.0%], advanced adenoma (including sessile serrated polyps greater than or equal to 1cm diameter) [20%] or non- advanced adenoma [31%]; or no colorectal neoplasia [45%]. These estimates are derived from a prospective cross-sectional screening study of 10,000 individuals at average risk for colorectal cancer who were screened with both Cologuard and colonoscopy. (Tad Ramirez al, N Engl J Med 2014;370(14):8180-7491.) Cologuard may produce a false negative or false positive result (no colorectal cancer or precancerous polyp present at colonoscopy follow up). A negative Cologuard test result does not guarantee the absence of CRC or advanced adenoma (pre-cancer). The current Cologuard screening interval is every 3 years. ([place] [employer] and U.S. Multi-Society Task Force). Cologuard performance data in a 10,000 patient pivotal study using colonoscopy as the reference method can be accessed at the following location: www.[employer]/results. Additional description of the Cologuard test process, warnings and precautions can be found at www.cologuard.com. Specimen (Source)Anatomical Location / LateralityCollection Method / Volume Collection TimeReceived TimeStool specimen (specimen)03/17/2024 10:05 AM EDT 03/18/2024 1:17 PM EDT Narrative Authorizing ProviderResult TypeResult StatusSalinda Dutta NPLAB MOLECULAR DIAGNOSTICS ORDERABLESFinal ResultPerforming OrganizationAddressCity/State/ZIP CodePhone Number [employer] (CLIA #:[id number]) [address] [place] [address], from Last 3 Months or Most Recently Relevant to Health Maintenance Insurance Advance Directives TypeDate RecordedPatient RepresentativeExplanationAdvance Directives and Living Will Living will and POA Care Teams Team MemberRelationshipSpecialtyStart DateEnd Date Cynthia Sy DO [address] [facility] [address] [place] [phone] PCP - [employer]12/01/20 Francie Whitten MD [address] [place] [address] PCP - GeneralFamily Medicine12/09/23 Mary Beth Dutta NP [address] [place] [address] Nurse PractitionerEmory Johns Creek Hospital12/09/23
--- OUTSIDE RECORDS SUMMARY | 2025-06-26 09:13 | XMS_ITS | Encounter Summary ---
Author Organization [facility] Address [address] [place] [address] Care Team Providers Care Professional Sports Scout Name Role Phone Cynthia Sy Unavailable [phone] Francie Whitten MD Primary Care Provider [phone] Mary Beth Dutta NP Unavailable [phone] Encounter Details DateTypeDepartmentCare Team (Latest Contact Info)Qfzqyzeksgp55/21/2025External Result Encounter [facility] Unsolicited Benjamin Mendoza, DO [address]iz [place], [place] [id number] Social History Tobacco UseTypesPacks/DayYears UsedDateSmoking Tobacco: NeverSmokeless [...] sexual activity by your part ner or ex-partner?03/05/2023Social Connection and Isolation PanelAnswerDate RecordedIn a typical week, how many times do you talk on the phone with family, friends, or neighbors?More than three times a week06/13/2024How often do you get together with friends or relatives?More than three times a week06/13/2024How often do you attend quaker or jainism services?More than 4 times per year 06/13/2024o you belong to any clubs or organizations such as quaker groups, unions, fraitembase or athletic groups, or school groups?Yes06/13/2024How often do you attend meetings of the clubs or organizations you belong to?More than 4 times per year06/13/2024re you , , , , never , or living with a partner?Rccmjtg7006/13/2024UDIT-CAnswerDate RecordedQ1: How often do you have a [...] hard at all06/13/2024HQ-2AnswerDate Recorded Patient Health Questionnaire-2 Eqgsc830[facility] [place] of Occupational Health - Occupational Stress QuestionnaireAnswerDate RecordedDo you feel stress - tense, restless, nervous, or anxious, or unable to sleep at night because your mind is troubled all the time - these days?Not at all06/13/2024Exercise Vital SignAnswerDate RecordedOn average, how many days per week do you engage in moderate to strenuous exercise (like a brisk walk)?7 days11/11/2024On average, how many minutes do you engage [...] steady place to sleep or slept in [facility] (including now)?No 03/05/2023Housing Stability Vital SignAnswerDate RecordedIn the last 12 months, was there a time when you were not able to pay the mortgage or rent on time?No 06/13/2024In the past 12 months, how many times have you moved where you were living?4At any time in the past 12 months, were you homeless or living in a nursing home (including now)?No06/13/2024CommentsNoSex and Gender InformationValueDate RecordedSex Assigned at SrvoyXhlelg96/05/2023 11:41 AM EDT Legal RoxFroira70/15/2023 7:26 PM EDTGender AlpunipdKukhsx47/15/2023 7:26 PM EDT Sexual UpnaofzztonCqoqgpou19/05/2023 11:41 AM EDTdocumented as of this encounter Plan of Treatment DateTypeDepartmentCare Team (Latest Contact Info)Awbfcykziui21/02/2025 9:30 AM ESTConsult STEFANY [facility] [address] [place] [phone] Francie Whitten MD [address] [place] [address] documented as of this encounter Procedures Procedure NamePriorityDate/TimeAssociated DiagnosisCommentsALPHA FETOPROTEIN, TUMOR TQVHFWGfcwwsg48/21/2025 9:11 AM EDT [place] 069Nekmqzz60/21/2025 9:11 AM EDT HCG, TOTAL, VXVdppsvl79/21/2025 9:11 AM EDT LACTATE DEHYDROGENASE, MCYDIQJMRWGuvtrqt64/21/2025 9:11 AM EDT JHTEbsciup92/21/2025 9:11 AM EDT documented in this encounter Results * CA 125 (05/23/2025 9:11 AM EDT)ComponentValueRef [...] Performing Organization Information ?Site ID: QPT ?Name: [employer] [facility] ?Address: [address] [place] [address], [address] [place] [phone] ?Director: Bj Ambriz MD Authorizing ProviderResult TypeResult StatusCorey Reji BRAVO BLOOD ORDERABLES Final ResultPerforming OrganizationAddressCity/State/ZIP CodePhone Number QUEST * hCG, quantitative, (05/23/2025 9:11 AM EDT)ComponentValueRef Range Test MethodAnalysis TimePerformed AtPathologist SignatureHCG, TOTAL, QN<5 mIU/mLQUESTComment: ?Reference Range Non or premenopausal <5 Postmenopausal <10 Values from different assay methods may vary. The use of this assay to monitor or to diagnose patients with cancer or any condition unrelated to has not been cleared or approved by the FDA or the tree deadener of the assay. Specimen (Source)Anatomical Location / LateralityCollection Method / Volume Collection TimeReceived Time05/23/2025 9:11 AM EDT1 9:11 AM EDT Narrative Resulting Agency Comment Performing Organization Information ?Site ID: QPT ?Name: [facility] ?Address: [address] [place] [address], [address] [place] [phone] ?Director: Bj Ambriz MD Authorizing ProviderResult TypeResult StatusCorey RejiPlains Regional Medical CenterAB BLOOD ORDERABLES Final ResultPerforming OrganizationAddressty/[facility] CenterPhone Number QUEST * (ABNORMAL) CEA (05/23/2025 9:11 [...] Performing Organization Information ?Site ID: QPT ?Name: [facility] ?Address: [address] [place] [address], [address] [place] [phone] ?Director: Bj Ambriz MD Authorizing ProviderResult TypeResult StatusCorey Reji DOLAB BLOOD ORDERABLES Final ResultPerforming OrganizationAddressty/[facility] CodePhone Number QUEST * AFP tumor marker (05/23/2025 9:11 AM EDT)ComponentValueRef RangeTest Method Analysis TimePerformed AtPathologist SignatureALPHA FETOPROTEIN, TUMOR MARKER 2.6ng/mLQUESTComment: Reference Range: <6.1 The use of AFP as a tumor marker in females is not recommended. This test was performed using the Dov Orange chemiluminescent method. Values obtained from different assay methods cannot be used interchangeably. AFP levels, regardless of value, should not be interpreted as absolute evidence of the presence or absence of disease. Specimen (Source)Anatomical Location / LateralityCollection Method / Volume Collection TimeReceived Time05/23/2025 9:11 AM EDT1 9:11 AM EDT Narrative Resulting Agency Comment Performing Organization Information ?Site ID: QPT ?Name: [facility] ?Address: [address] [place] [phone] ?Director: Bj Ambriz MD Authorizing ProviderResult TypeResult StatusCorey Reji DOLAB BLOOD ORDERABLES Final ResultPerforming OrganizationAddressCity/State/[facility] CodePhone Number QUEST * Lactate dehydrogenase, isoenzymes (05/23/2025 9:11 AM EDT)ComponentValueRef RangeTest MethodAnalysis TimePerformed AtPathologist KifkvayaiYQ31984 - 32 % FXTXVXM29350 - 42 %OXKZGSB01165 - 30 %IDLHXUS393 - 13 %YLCUFJH926 - 18 %QUEST INTERPRETATIONCANCELEDQUESTComment:Result canceled by the ancillary.Specimen (Source)Anatomical Location / LateralityCollection Method / VolumeCollection TimeReceived Time05/23/2025 9:11 AM EDT1 9:11 AM EDT Narrative Resulting Agency Comment Performing Organization Information ?Site ID: AMD ?Name: [employer] [facility] ?Address: [address] [place] [address] [place] ?Director: Isaac Patterson M.D.,PhD Authorizing ProviderResult TypeResult StatusCorey Reji DOLAB BLOOD ORDERABLES Final ResultPerforming OrganizationAddressty/State/ZIP CodePhone Number QUEST documented in this encounter Visit Diagnoses Not on filedocumented in this encounter Additional Health Concerns AssessmentNoted TimePHQ-9 Depression Total Score: 8:00 AM EDT documented as of this encounter Care Teams Team MemberRelationshipSpecialtyStart DateEnd Date Cynthia Sy DO [address] [facility] [address] [place] [address] PCP - [employer]12/01/20 Francie Whitten MD [address] [place], [place] [phone] PCP - GeneralFamily Medicine12/09/23 Mary Beth Dutta NP [address] [place], [place] [phone] Nurse PractitionerFamily Medicine12/09/23documented as of this encounter
--- OUTSIDE RECORDS SUMMARY | 2025-06-26 09:13 | XMS_ITS | Encounter Summary ---
Author Organization [facility] Address [address] [place] [facility] [place] [address] Care Team Providers Care Fabric Coating Supervisor Name Role Phone Cynthia Sy DO Unavailable [phone] Francie Whitten MD Primary Care Provider [phone] Mary Beth Dutta FINANCE ASSISTANT Unavailable [phone] Encounter Details DateTypeDepartmentCare Team (Latest Contact Info)Rtjhmzyvuhj81/11/2025Telephone [facility] [address] [place] [address] Francie Whitten MD [address] [place], [place] [phone] Social History Tobacco UseTypesPacks/DayYears UsedDateSmoking Tobacco: NeverSmokeless [...] times a week06/13/2024How often do you attend catholic or jehovah's witness services?More than 4 times per year 06/13/2024o you belong to any clubs or organizations such as catholic groups, unions, fraternal or athletic groups, or school groups?Yes06/13/2024How often do you attend meetings of the clubs or organizations you belong to?More than 4 times per year06/13/2024re you , , , , never , or living with a partner?Jpyszbo5506/13/2024UDIT-CAnswerDate RecordedQ1: How often do you have a [...] hard at all06/13/2024HQ-2AnswerDate Recorded Patient Health Questionnaire-2 Cjtid287[facility] [place] of Occupational Health - Occupational Stress QuestionnaireAnswerDate [...] steady place to sleep or slept in [facility] (including now)?No 03/05/2023Housing Stability Vital SignAnswerDate RecordedIn the last 12 months, was there a time when you were not able to pay the mortgage or rent on time?No 06/13/2024In the past 12 months, how many times have you moved where you were living?t any time in the past 12 months, were you homeless or living in a jail (including now)?No06/13/2024CommentsNoSex and Gender InformationValueDate RecordedSex Assigned at VtxvvUuhupt60/05/2023 11:41 AM EDT Legal QxjDtwmst11/15/2023 7:26 PM EDTGender SrvuvaotPeesdz94/15/2023 7:26 PM EDT Sexual MkypvtmozrpZnrgvhpb53/05/2023 11:41 AM EDTdocumented as of this encounter Miscellaneous Notes * Telephone Encounter - Lucero Medel - 06/14/2025 11:42 AM EST Scheduled with Dr. Whitten * Telephone Encounter - Francie Vidal MA - 06/14/2025 10:38 AM EST LMOM Letting ro know to return call to the office. If she wants surgical clearance we will be happy to get patient scheduled prior to surgery. * Telephone Encounter - Lucero Medel - 06/13/2025 9:42 AM EST Ro calling today from Dr. Mendoza's office. Jul.11 Darlene is having Davinci assisted diagnostic lap with removal of tubes and ovaries, d and c hysteroscopy. She takes an aspirin daily and Dr. Mendoza has approved for her to take aspirin up until the day of surgery and will give her 40mg of lovenoxafter her surgery. Patient has history of DVT and is concerned. Do you need to see patient for surgical clearance? Please advise Ro [phone] option 3. Thank you. documented in this encounter Plan of Treatment DateTypeDepartmentCare Team (Latest Contact Info)Fmvrsxskqnl43/02/2025 9:30 AM ESTConsult STEFANY [facility] [address] [place] [address] Francie Whitten MD [address] [facility] [place] [address] documented as of this encounter Visit Diagnoses Not on filedocumented in this encounter Additional Health Concerns AssessmentNoted TimePHQ-9 Depression Total Score: 8:00 AM EDT documented as of this encounter Care Teams Team MemberRelationshipSpecialtyStart DateEnd Date Cynthia Sy DO [address] [place] [address] PCP - [employer]12/01/20 Francie Whitten MD [address] [place] [address] PCP - GeneralFamtly Medicine12/09/23 Mary Beth Dutta NP [address] [place] [address] Nurse PractitionerCandler County Hospital12/09/23documented as of this encounter
--- NOTE | 2025-06-26 09:14 | ECG_ITS ---
[facility] Test Date: 2025-06-26 Pat Name: JEAN CLAUDE MILLAN Department: Room: - Gender: Female College Tutor: : 1955 Requested By: Order Number: [id number] Reading MD: SRIDEVI BAY M.D. Measurements Intervals [place] Rate: 57 P: 57 [place]: 155 QRS: -6 QRSD: 146 T: -6 QT: 431 QTc: 423 Interpretive Statements SINUS BRADYCARDIA RIGHT BUNDLE BRANCH BLOCK [120+ ms QRS DURATION, UPRIGHT V1, 40+ ms S IN I/aVL/V4/V5/V6] Abnormal ECG No previous ECG available for comparison Electronically Signed On 06-26-2025 19:35:21 EST by SRIDEVI BAY M.D.
[2025-06-26 10:12] LABS: Hematocrit 39.4 % (36.0-48.0); Hemoglobin 13.0 g/dL (12.0-16.0); Immature Granulocytes Abs Auto 0.01 10^3/uL (0.00-0.03); Immature Granulocytes Pct Auto 0.2 % (0.0-0.5); Lymphocytes Absolute Auto 1.4 10^3/uL (1.2-3.8); Mean Corpuscular HGB Conc 33.0 g/dL (29.9-35.2); Mean Corpuscular Hemoglobin 30.6 pg (26.7-34.0); Mean Corpuscular Volume 92.7 fL (81.0-99.0); Platelet Count 240 10^3/uL (150-450); Red Blood Count 4.25 10^6/uL (4.20-5.40); White Blood Count 4.7 10^3/uL (4.0-11.0)
[2025-06-26 10:16] LABS: Anion Gap 12.3; Blood Urea Nitrogen 14.0 mg/dL (7.0-18.0); Calcium 9.2 mg/dL (8.5-10.1); Carbon Dioxide 30.6 mmol/L (21.0-32.0); Chloride 105 mmol/L (98-107); Estimated GFR (African America >60 (>=60 mL/min/1.73m^2); Estimated GFR (Non-African Ame >60 (>=60 mL/min/1.73m^2); Glucose 83 mg/dL (74-106); Potassium 3.9 mmol/L (3.5-5.1); Sodium 144 mmol/L (136-145)
[2025-06-26 10:43] LABS: INR 0.99; Partial Thromboplastin Time 26.0 sec (22.3-36.2); Prothrombin Time 10.5 sec (9.0-11.6)
== END 2025-06-26 09:09 | disposition home or self-care (01) ==
PROVIDERS: Family Provider Family Medicine; PCP Family Medicine; Visit Provider Obstetrics & Gynecology
DX: Z01.810 Encounter for preprocedural cardiovascular examination (principal); Z01.812 Encounter for preprocedural laboratory examination; N83.299 Other ovarian cyst, unspecified side; N83.202 Unspecified ovarian cyst, left side; R10.30 Lower abdominal pain, unspecified; Z80.41 Family history of malignant neoplasm of ovary; N83.8 Other noninflammatory disorders of ovary, fallopian tube and broad ligament; N84.0 Polyp of corpus uteri
CPT/HCPCS: 36415; 80048; 85025; 85610; 85730; 93005

== ENCOUNTER 2025-07-07 06:44 | Outpatient (OUT) | payer MEDICARE, SELFPAY ==
--- NOTE | 2025-07-07 06:48 | CA_ITS ---
Patient Name: JEAN CLAUDE MILLAN MR#: [id number] : 1955 Exam Date: 07/07/2025 Ordering Doctor: DR JAQUAN DAY M.D. ECHOCARDIOGRAM REPORT PROCEDURE: CA ECHO DOPPLER COMPLETE INDICATIONS: Pre OP, New onset RBBB COMPARISON: None. DESCRIPTION: COMPLETE ECHOCARDIOGRAM Real-time transthoracic echocardiography with 2D, M-mode, spectral and color flow Doppler performed. QUALITY: Technical quality was good. LEFT VENTRICLE: Normal chamber size. Mild concentric left ventricular hypertrophy. The septum is abnormal in motion likely due to bundle branch block. Increased trabeculations noted in the apex of the ventricle. Visual estimation of left ventricular ejection fraction is 50-55%. LV EF: Lower limits of normal left ventricular ejection fraction, (50-55%). DIASTOLIC: Normal diastolic function. ATRIAL SEPTUM: LEFT ATRIUM: Mild dilatation. RIGHT ATRIUM: Normal chamber size. RIGHT VENTRICLE: Normal chamber size. Normal right ventricular systolic function. TRICUSPID VALVE: Normal mobility and thickness. No stenosis with mild regurgitation. No evidence of pulmonary hypertension. The RVSP measures 26 mmHg. MITRAL VALVE: Normal mobility and thickness. No evidence of mitral valve stenosis. There is no mitral annular calcification. Trivial mitral regurgitation. AORTIC VALVE: Normal trileaflet appearance. No visible sclerosis. Normal leaflet mobility. No evidence of aortic valve stenosis. Mild aortic regurgitation. AORTIC ROOT: Normal diameter and appearance. The aortic root measures 3.3 cm, the ascending aorta measures 3.0 cm, the aortic arch is mildly dilated measuring 3.7 cm. PULMONIC VALVE: Grossly normal. No stenosis. No regurgitation. PERICARDIUM: No evidence of pericardial effusion. IVC: Collapses with inspiration. The IVS is normal in size measuring 2.0 cm. PLEURA: CONCLUSION: 1. Mild concentric left ventricular hypertrophy with low normal systolic function. Estimated LVEF is 50 to 55%. Increased trabeculations noted in the apex of the left ventricle. 2. Normal right ventricular size and systolic function. 3. Normal diastolic function. 4. Mild aortic and tricuspid regurgitation. 5. Normal right-sided pressures. 6. Consider cardiac MRI for further assessment of the left ventricular apex. Adult Echocardiography Procedure Report Left Ventricle LVEDD (3.7 - 5.6 cm): 5.10 cm LVESD (2.2 - 4.0 cm): 3.58 cm LVIVS thickness (0.6 - 1.2 cm): 1.39 cm LVPW thickness (0.5 - 1.0 cm): 1.17 cm e': 0.14 m/s E - e': 4.30 LVOT Max Gradient: 3.38 mm[Hg] LVOT Area (cm2): 0.92 m/s Peak Velocity (LVOT): 0.92 m/s Mean Velocity (LVOT): 0.65 m/s LVOT Diameter 2.02 cm Left Ventricular Ejection Fraction: 50-55 % Left Atrium LA Volume Index (2D A2C): 46.12 ml/m2 Left Atrium Systolic Dimension: 4.23 cm Mitral Valve MV E to A Ratio: 0.82 Mitral Valve A-Wave Peak Velocity: 0.74 m/s Mitral Valve E-Wave Peak Velocity: 0.61 m/s Right Ventricle RV Internal Diastolic Dimension: 3.53 cm Aorta AO Root Diam: 3.27 cm Ascending Ao Diam: 3.04 cm Aortic Valve AoV Area (Peak Dwain): 2.56 cm2, 2.56 cm2 AoV Area (VTI): 2.37 cm2, 2.37 cm2 Deceleration Clare: 0.87 m/s2, 1.33 m/s2 Pressure Half-Time: 1.03 s, 675.57 ms Peak Velocity(Antegrade Flow): 1.15 m/s Peak Gradient(Antegrade Flow): 5.31 mm[Hg] Mean Velocity(Antegrade Flow): 0.79 m/s Mean Gradient(Antegrade Flow): 2.87 mm[Hg] Velocity Time Integral: 29.79 cm Tricuspid Valve Peak Velocity (Regurgitant Flow): 2.10 m/s, 2.39 m/s, 2.21 m/s Pulmonic Valve Mean Gradient: 0.90 mm[Hg] Mean Velocity: 0.45 m/s Peak Velocity: 0.67 m/s, 0.83 m/s Peak Gradient: 2.75 mm[Hg], 1.78 mm[Hg] Right Atrium Right Atrium Systolic Pressure: 52.84 ml, 52.84 ml Dictated by: Aristeo Baker M.D. on 07/07/2025 at 21:01 Approved by: Aristeo Baker M.D. on 07/07/2025 at 21:09
== END 2025-07-07 06:45 | disposition home or self-care (01) ==
LOC: CARD 06:45
PROVIDERS: Family Provider Family Medicine; PCP Family Medicine; Visit Provider Family Medicine
DX: Z01.818 Encounter for other preprocedural examination (principal); Z01.810 Encounter for preprocedural cardiovascular examination; I45.10 Unspecified right bundle-branch block; R94.31 Abnormal electrocardiogram [ECG] [EKG]
CPT/HCPCS: 93306

== ENCOUNTER 2025-07-21 07:21 | Outpatient (OUT) | payer MEDICARE, SELFPAY ==
--- OUTSIDE RECORDS SUMMARY | 2025-07-14 11:45 | XMS_ITS | Encounter Summary ---
Author Organization [facility] Address [address] [place] [address] Care Team Providers Care Supervisor Soldering Name Role Phone Francie Whitten MD Primary Care Provider [phone] Encounter Details DateTypeDepartmentCare Team (Latest Contact Info)Usatxjikkit97/12/2025 11:45 AM ESTOffice Visit [facility] [address] [place] [address] Aristeo Baker MD [address] [facility] [address] [facility] [place] [address] Preop cardiovascular exam (Primary Dx); RBBB; Shortness of breath; Mixed hyperlipidemia Social History Tobacco UseTypesPacks/DayYears UsedDateSmoking Tobacco: NeverSmokeless Tobacco: Never Tobacco Cessation:Counseling Given: Not Answered CommentsUnknownSex and Gender InformationValueDate RecordedSex Assigned at YakfjGnscfz92/08/2025 11:04 AM ESTLegal FwdCjxluo80/08/2025 9:07 AM ESTGender NupbaqkcJqmhgy23/08/2025 11:04 AM ESTSexual OrientationHeterosexual or Straight 07/10/2025 11:04 AM ESTdocumented as of this encounter Last Filed Vital Signs Vital SignReadingTime TakenCommentsBlood Rzccdhcb354/7607/14/2025 12:19 PM EST Iyoxv888707/14/2025 12:19 PM ESTTemperature--Respiratory Rate--Oxygen Saturation 97%07/14/2025 12:19 PM ESTInhaled Oxygen Concentration--Myqbuc18.2 kg (212 lb) 07/14/2025 12:19 PM MTMLwmkjt275.9 cm (5' 1 )07/14/2025 12:19 PM ESTBody Mass Index40.0607/14/2025 12:19 PM ESTdocumented in this encounter Progress Notes * Aristeo Baker MD - 07/14/2025 11:45 AM EST Images from the original note were not included. [place] Cardiology [facility] Subjective Darlene Carmona is a 70 y.o. year old female patient being seen for surgery clearance. Ref from Dr. Whitten. She has hx of DVT s/p knee surgery. She was treated with Xarelto for 1 month after that per patient. Says PCP ordered cardiac MRI s/p echo per Dr. Baker recommendations. Denies chest pain. Does endorse SOB with exertion but hasn't had to exert lately. Problem List[1] Family History[2] Social History[3] HPI This is a 70-year-old woman who is seen today as a new patient referred from Dr. Francie Whitten's office for preoperative evaluation prior to STRIP TANK TENDER surgery. She is a 70-year-old woman with prior history of hyperlipidemia on atorvastatin 10 mg daily. She has prior history of DVT many years ago in the setting of having undergone knee surgery and was treated with anticoagulation therapy at that time. She has shortness of breath on exertion NYHA class II-III symptoms with mild occasional lower extremity edema especially in the right lower extremity where she had a prior DVT. She denies chest pain.She denies palpitations. She has no dizziness or lightheadedness. She needs to undergo STRIP TANK TENDER surgery because of an ovarian mass. The surgery will involve removal of the ovaries and fallopian tubes. It is unclear if the uterus will be involved with the surgery. Review of Systems Cardiovascular: Positive for dyspnea on exertion and leg swelling (RLE, hx of DVT s/p surgery). All other systems reviewed and are negative. Objective Visit Vitals BP 154/76 (BP Location: Left arm, Patient Position: Sitting) Pulse 63 Ht 1.549 m (5' 1 ) Wt 96.2 kg (212 lb) SpO2 97% BMI 40.06 kg/m?? Smoking Status Never BSA 2.03 m?? Physical Exam Constitutional: Appearance: She is well-developed. She is obese. She is not ill-appearing. HENT: Head: Normocephalic and atraumatic. Nose: Nose normal. Eyes: General: No scleral icterus. Pupils: Pupils are equal, round, and reactive to light. Neck: Thyroid: No thyromegaly. Vascular: No JVD. Cardiovascular: Rate and Rhythm: Normal rate and regular rhythm. Pulses: Radial pulses are 2+ on the right side and 2+ on the left side. Heart sounds: Normal heart sounds. No murmur heard. No friction rub. No gallop. Pulmonary: Effort: Pulmonary effort is normal. No respiratory distress. Breath sounds: Normal breath sounds. No wheezing or rales. Chest: Chest wall: No tenderness. Abdominal: General: Bowel sounds are normal. There is no distension. Palpations: Abdomen is soft. Tenderness: There is no abdominal tenderness. Musculoskeletal: General: No swelling. Cervical back: Neck supple. Skin: General: Skin is warm and dry. Neurological: General: No focal deficit present. Mental Status: She is alert and oriented to person, place, and time. Psychiatric: Mood and Affect: Mood normal. Behavior: Behavior is cooperative. Judgment: Judgment normal. Allergies Allergies[4] Medications Current Medications[5] Recent Labs Blood testing 06/26/2025: Hemoglobin 13, platelets 240, potassium 3.9, BUN 14, creatinine 0.87, eGFR more than 60. Lipids 07/20/2024: Chol 176, HDL 63, TG 105, LDL 93. Imaging and other tests Echocardiogram 07/07/2025: CONCLUSION: 1. Mild concentric left ventricular hypertrophy with low normal systolic function. Estimated LVEF is 50 to 55%. Increased trabeculations noted in the apex of the left ventricle. 2. Normalright ventricular size and systolic function. 3. Normal diastolic function. 4. Mild aortic and tricuspid regurgitation. 5. Normal right-sided pressures. 6. Consider cardiac MRI for further assessmentof the left ventricular apex. ECG 06/26/2025: Sinus bradycardia, right bundle branch block, abnormal ECG. Assessment/Plan Diagnoses and all orders for this visit: Preop cardiovascular exam - Treadmill Stress Myocardial Perfusion Imaging; Future RBBB Shortness of breath - Treadmill Stress Myocardial Perfusion Imaging; Future Mixed hyperlipidemia 1. Shortness of breath, history of right bundle branch block and trabeculations noted in the apex of the left ventricle on echocardiography: I think it is reasonable to proceed with a stress test to investigate the shortness of breath especially in light of upcoming significant STRIP TANK TENDER surgery. I am going to order a treadmill exercise stress test with nuclear imaging. Her baseline ECG showed right bundle branch block and it would be better to obtain myocardial perfusion imaging for better assessment. 2. Preoperative evaluation for STRIP TANK TENDER surgery: I will check a stress test to risk stratify her from a cardiac perspective. 3. Right bundle branch block: I explained to her that this is a relatively not uncommon condition. Generally it is not association with significant cardiac structural disease but sometimes can be associated with congenital anomalies such as septal defects. Review of the recent echocardiogram does not suggest such defects however there was trabeculations on the echocardiogram and the left ventricle and those are going to be investigated with a cardiac MRI that she has scheduled next month. 4. Hyperlipidemia: Currently on atorvastatin 10 mg daily. Her recent lipid panel shows adequate control. Continue the same. Once I obtain the results of the stress test I can finalize the preoperative evaluation for STRIP TANK TENDER surgery. I explained to her that given her recent prior history of DVT in the setting of surgery, she would be at a higher risk for developing DVT and PE after STRIP TANK TENDER surgery and I recommend early ambulation andpotentially use of prophylactic anticoagulation therapy. I will plan on seeing her in follow-up in 6 months. Follow up in about 6 months (around 01/12/2026). Aristeo Baker MD [1] Patient Active Problem List Diagnosis BMI 40.0-44.9, adult ([facility]) History of laparoscopic cholecystectomy Mixed hyperlipidemia ABDIRIZAK (obstructive sleep apnea) Otalgia, left [2] Family History Problem Relation Name Age of Onset Other (CABG) Mother Heart attack Mother Heart disease Mother Cancer Mother Other (CABG) Mother's Sister Heart disease Mother's Sister [3] Social History Tobacco Use Smoking status: Never Smokeless tobacco: Never [4] Allergies Allergen Reactions Shellfish Containing Products Other [5] Current Outpatient Medications: aspirin 81 mg EC tablet, Take 81 mg by mouth in the morning., Disp: , Rfl: atorvastatin (Lipitor) 10 mg tablet, Take 10 mg by mouth in the morning. (Patient taking differently: Take 10 mg by mouth at bedtime.), Disp: , Rfl: glucosamine-chondroitin (Osteo Bi-Flex) 250-200 mg tablet, Take by mouth., Disp: , Rfl: vit C/E/Zn/coppr/lutein/zeaxan (PRESERVISION AREDS-2 ORAL), Take by mouth., Disp: , Rfl: documented in this encounter Plan of Treatment NameTypePriorityAssociated DiagnosesOrder ScheduleTreadmill Stress Myocardial Perfusion ImagingCardiac ServicesRoutine Preop cardiovascular exam Shortness of breath Expected: 07/14/2025 (Approximate), Expires: 07/14/2027documented as of this encounter Visit Diagnoses Diagnosis Preop cardiovascular exam- Primary Pre-operative cardiovascular examination RBBB Shortness of breath Mixed hyperlipidemia documented in this encounter Care Teams Team MemberRelationshipSpecialtyStart DateEnd Francie Whitten MD [address] [place] [address] PCP - GeneralInternal Jusjfvfx34/12/25documented as of this encounter
--- NOTE | 2025-07-21 06:45 | NM_ITS ---
Patient Name: JEAN CLAUDE MILLAN MR#: [id number] : 1955 Exam Date: 07/21/2025 Ordering Doctor: DR SRIDEVI BAY M.D. RADIOLOGY REPORT PROCEDURE: NM RAMIREZ PERF SPECT REST STR COMPARISON: None. INDICATIONS: PRE PROCEDURE CARDIOVASCULAR EXAM, SHORTNESS OF BREATH TECHNIQUE: Exam Description: Stress/Rest one day protocol gated SPECT Rest Imagin.2 mCi Tc-99m Cardiolite IV on 07/21/2025 Stress Imaging 30.6 mCi Tc-99m Cardiolite IV on 07/21/2025 Exercise Protocol: Curtis Heart Rate (bpm): Rest: 65 Max: 129 PMHR: 86 Blood Pressure: Rest: 130/80 Max: 182/92 Exercise Time: Minutes: 4 Seconds: 28 Stage Reached: Stage: 2 Mets 5.4 Symptoms: Rest and peak stress ECG findings were pending and the exercise portion of the study was pending per attending physician [facility] . For more details please see separate cardiac stress test report. FINDINGS: QUALITY OF STUDY: Good PERFUSION DEFECT: LOCATION: Apical SIZE: Small SEVERITY: Mild TYPE: Fix, with adequate contractility and thickening consistent with soft tissue attenuation WALL MOTION: Normal LV SIZE: 106 mL. TID / TCD: 1.0 LVEF: Calculated EF 72%. SUMMARY: Normal myocardial perfusion imaging study CONCLUSION: Normal nuclear myocardial perfusion stress images without evidence of ischemia or infarction Normal left ventricular systolic function, ejection fraction 72% No transient ischemic dilatation, TID 1.0 EKG portion of stress test is reported separately Dictated by: Leta Pablo MD on 07/24/2025 at 10:33 Approved by: Leta Pablo MD on 07/24/2025 at 10:38
--- OUTSIDE RECORDS SUMMARY | 2025-07-21 07:24 | XMS_ITS | Encounter Summary ---
Author Organization [facility] Healthcare Address [address] [facility] [place] [address] Care Team Providers Care Power Wheelchair Mechanic Name Role Phone Cynthia Sy DO Unavailable [phone] Francie Whitten MD Primary Care Provider [phone] Mary Beth Dutta TRAUMA REGISTRAR Unavailable [phone] Encounter Details DateTypeDepartmentCare Team (Latest Contact Info)Sawukydcnnq01/10/2025Telephone [facility] Family Medicine [address] [place] [address] Francie Whitten MD [address] [place], [place] [address] Social History Tobacco UseTypesPacks/DayYears UsedDateSmoking Tobacco: NeverSmokeless [...] times a week06/13/2024How often do you attend yazidi or uatsdin services?More than 4 times per year 06/13/2024o you belong to any clubs or organizations such as yazidi groups, unions, fraternal or athletic groups, or school groups?Yes06/13/2024How often do you attend meetings of the clubs or organizations you belong to?More than 4 times per year06/13/2024re you , , , , never , or living with a partner?Ovouade5906/13/2024UDIT-CAnswerDate RecordedQ1: How often do you have a [...] hard at all06/13/2024HQ-2AnswerDate Recorded Patient Health Questionnaire-2 Fsnrt096[facility] [place] of Occupational Health - Occupational Stress QuestionnaireAnswerDate [...] steady place to sleep or slept in [facility] (including now)?No 03/05/2023Housing Stability Vital SignAnswerDate RecordedIn the last 12 months, was there a time when you were not able to pay the mortgage or rent on time?No 06/13/2024In the past 12 months, how many times have you moved where you were living?t any time in the past 12 months, were you homeless or living in a halfway (including now)?No06/13/2024CommentsNoSex and Gender InformationValueDate RecordedSex Assigned at JiohsJcczot46/05/2023 11:41 AM EDT Legal GpvYjjlvi77/15/2023 7:26 PM EDTGender PnwyjmduFdpskv38/15/2023 7:26 PM EDT Sexual PdmmvhrepswKmwpylhp56/05/2023 11:41 AM EDTdocumented as of this encounter Miscellaneous Notes * Telephone Encounter - Francie Vidal MA - 07/12/2025 9:51 AM EST Spoke with pt and asked if [facility] was okay and she said that is fine. I did put a note on it saying pt would like to have done before her cardiology appt if possible . Which is thursday * Telephone Encounter - Ac Salcedo - 07/12/2025 9:04 AM EST [facility] called said they do not perform MR CARDIAC MORPHOLOGY documented in this encounter Plan of Treatment Not on file documented as of this encounter Visit Diagnoses Not on filedocumented in this encounter Additional Health Concerns AssessmentNoted TimePHQ-9 Depression Total Score: 8:00 AM EDT documented as of this encounter Care Teams Team MemberRelationshipSpecialtyStart DateEnd Date Cynthia Sy DO [address] [facility] [address] [place] [address] PCP - [employer]12/01/20 Francie Whitten MD [address] [place] [address] PCP - GeneralFamily Medicine12/09/23 Mary Beth Dutta NP [address] [place] [address] Nurse PractitionerFamily Medicine12/09/23documented as of this encounter
--- OUTSIDE RECORDS SUMMARY | 2025-07-21 07:24 | XMS_ITS | Encounter Summary ---
Author Organization [facility] Healthcare Address [address] [place] [address] Care Team Providers Care Bond Clerk Name Role Phone Cynthia Sy DO Unavailable [phone] Francie Whitten MD Primary Care Provider [phone] Mary Beth Dutta NP Unavailable [phone] Reason for Referral * Imaging (Routine) - AuthorizedSpecialtyDiagnoses / ProceduresReferred By ContactReferred To [facility] Diagnoses Abnormal echocardiogram Procedures MR cardiac morphology and function wo IV contrast Francie Whitten MD [address] [place] [address] Phone: tel: fax: [facility] fax: Referral IDStatusReasonStart DateExpiration DateVisits RequestedVisits [id number] Encounter Details DateTypeDepartmentCare Team (Latest Contact Info)Koisyhwpnww45/08/2025Orders Only [facility] Family Medicine [address] [place] [address] Francie Whitten MD [address] [place] [address] Abnormal echocardiogram (Primary Dx) Social History Tobacco UseTypesPacks/DayYears UsedDateSmoking Tobacco: NeverSmokeless [...] times a week06/13/2024How often do you attend nondenominational or samaritan services?More than 4 times per year 06/13/2024o you belong to any clubs or organizations such as nondenominational groups, unions, fraternal or athletic groups, or school groups?Yes06/13/2024How often do you attend meetings of the clubs or organizations you belong to?More than 4 times per year06/13/2024re you , , , , never , or living with a partner?Zcfulka3706/13/2024UDIT-CAnswerDate RecordedQ1: How often do you have a [...] hard at all06/13/2024HQ-2AnswerDate Recorded Patient Health Questionnaire-2 Dkjvt379[facility] [place] of Occupational Health - Occupational Stress QuestionnaireAnswerDate [...] were you homeless or living in a penitentiary (including now)?No4CommentsNoSex and Gender InformationValueDate RecordedSex Assigned at XquypNneath17/05/2023 11:41 AM EDT Legal BipHizvvz43/15/2023 7:26 PM EDTGender IojydtraHrmphj54/15/2023 7:26 PM EDT Sexual HhoxnfaqqitFtezvjsc06/05/2023 11:41 AM EDTdocumented as of this encounter Plan of Treatment NameTypePriorityAssociated DiagnosesOrder ScheduleMR cardiac morphology and function wo IV contrastImagingRoutine Abnormal echocardiogram Expected: 07/10/2025, Expires: 07/10/2026documented as of this encounter Visit Diagnoses Diagnosis Abnormal echocardiogram- Primary Nonspecific (abnormal) findings on radiological and other examination of other intrathoracic organs documented in this encounter Additional Health Concerns AssessmentNoted TimePHQ-9 Depression Total Score: 8:00 AM EDT documented as of this encounter Care Teams Team MemberRelationshipSpecialtyStart DateEnd Date Cynthia Sy DO [address] [facility] [address] [place] [address] PCP - [employer]12/01/20 Francie Whitten MD [address] [place] [address] PCP - GeneralFamily Medicine12/09/23 Mary Beth Dutta NP [address] [place], [place] [phone] Nurse PractitionerFamily Medicine12/09/23documented as of this encounter
--- OUTSIDE RECORDS SUMMARY | 2025-07-21 07:24 | XMS_ITS | Encounter Summary ---
Author Organization [facility] Healthcare Address [address] [place] [address] Care Team Providers Care Quality Assurance Monitor Final Name Role Phone Cynthia Sy DO Unavailable [phone] Francie Whitten MD Primary Care Provider [phone] Mary Beth Dutta VAULT ATTENDANT Unavailable [phone] Reason for Referral * Imaging (Routine) - AuthorizedSpecialtyDiagnoses / ProceduresReferred By ContactReferred To ContactRadiology Diagnoses New onset right bundle branch block (RBBB) Abnormal EKG Preoperative clearance Procedures MR cardiac morphology and function w and wo IV contrast Francie Whitten MD [address] [place] [address] Phone: tel: fax: [facility] fax: Referral IDStatusReasonStart DateExpiration DateVisits RequestedVisits [id number]/[id number]/ Encounter Details DateTypeDepartmentCare Team (Latest Contact Info)Kxbtyvxruqy37/11/2025Orders Only [facility] Family Medicine [facility] [place] [phone] Francie Vidal MA [address] [place] [address] New onset right bundle branch block (RBBB); Abnormal EKG; Preoperative clearance Social History Tobacco UseTypesPacks/DayYears UsedDateSmoking Tobacco: NeverSmokeless [...] times a week06/13/2024How often do you attend voodoo or latter-day services?More than 4 times per year 4Do you belong to any clubs or organizations such as voodoo groups, unions, fraternal or athletic groups, or school groups?Yes06/13/2024How often do you attend meetings of the clubs or organizations you belong to?More than 4 times per year06/13/2024re you , , , , never , or living with a partner?Kyiwkqc8106/13/2024UDIT-CAnswerDate RecordedQ1: How often do you have a [...] hard at all06/13/2024HQ-2AnswerDate Recorded Patient Health Questionnaire-[address] Hyvxc448FinSt. Vincent [facility] of Occupational Health - Occupational Stress QuestionnaireAnswerDate [...] steady place to sleep or slept in [place] (including now)?No 03/05/2023Housing Stability Vital SignAnswerDate RecordedIn the last 12 months, was there a time when you were not able to pay the mortgage or rent on time?No 06/13/2024In the past 12 months, how many times have you moved where you were living?4At any time in the past 12 months, were you homeless or living in a care home (including now)?No4CommentsNoSex and Gender InformationValueDate RecordedSex Assigned at XotyyAjgoaj19/05/2023 11:41 AM EDT Legal QbnQbeoez54/15/2023 7:26 PM EDTGender DlzinetlPdrsdk31/15/2023 7:26 PM EDT Sexual BuuuxzyovtySisfxqmq90/05/2023 11:41 AM EDTdocumented as of this encounter Progress Notes * Francie Vidal MA - 07/13/2025 9:40 AM EST Subjective ?Quick Links Last Note in Specialty Snapshot Edit RFV/CC Edit Screenings Current Meds Patient ID: Darlene Carmona is a 70 y.o. female who presents for No chief complaint on file.. HPI History of Present Illness ?Quick Review Review Full History Meds - Current Medications[1] --- PMH - Asymptomatic menopausal state BMI 39.0-39.9,adult Bronchitis Diverticulitis DVT (deep venous thrombosis) (HCC) DVT (deep venous thrombosis) (HCC) Family history of malignant neoplasm of kidney Family history of malignant neoplasm of ovary Functional dyspepsia Gallstone, sludge, lap cholecystectomy Hemorrhoids History of torn meniscus of knee intermediate current use of anticoagulant Menopause present Obesity Obesity (BMI 30-39.9) Other disturbances of skin sensation Ovarian cyst Sinusitis Sleep apnea Objective ?Quick Links Add Vitals Timeline (Adult) Labs Imaging Results Review Trend Vitals ?? Avoid pulling in long tables of results. Comment on relevant results to support your medical decision making. There were no vitals taken for this visit. Physical Exam Physical Exam ?Quick Links Full Problem List GI Assessment & Plan New onset right bundle branch block (RBBB) Orders: MR cardiac morphology and function w and wo IV contrast; Future Abnormal EKG Orders: MR cardiac morphology and function w and wo IV contrast; Future Preoperative clearance Orders: MR cardiac morphology and function w and wo IV contrast; Future Assessment & Plan [1] aspirin 81 MG EC tablet atorvastatin (Lipitor) 10 MG tablet Itxqydr-Ixoijyuaa-Oiuhtmz D (CALCIUM 1200+D3 PO) fluticasone (Flonase) 50 MCG/ACT nasal spray Multiple Vitamins-Minerals (Centrum Silver 50+Women) tablet Multiple Vitamins-Minerals (EYE VITAMINS & MINERALS PO) documented in this encounter Plan of Treatment NameTypePriorityAssociated DiagnosesOrder ScheduleMR cardiac morphology and function w and wo IV contrastImagingRoutine New onset right bundle branch block (RBBB) Abnormal EKG Preoperative clearance Expected: 07/13/2025, Expires: 07/13/2026documented as of this encounter Visit Diagnoses Diagnosis New onset right bundle branch block (RBBB) Abnormal EKG Nonspecific abnormal electrocardiogram (ECG) (EKG) Preoperative clearance Unspecified pre-operative examination documented in this encounter Additional Health Concerns AssessmentNoted TimePHQ-9 Depression Total Score: 8:00 AM EDT documented as of this encounter Care Teams Team MemberRelationshipSpecialtyStart DateEnd Date Cynthia Sy DO [address] [facility] [address] [place] [address] PCP - [employer]12/01/20 Francie Whitten MD [address] [place] [address] PCP - GeneralFamily Medicine12/09/23 Mary Beth Dutta NP [address] [place], [place] [phone] Nurse PractitionerFamily Medicine12/09/23documented as of this encounter
--- OUTSIDE RECORDS SUMMARY | 2025-07-21 07:24 | XMS_ITS | Encounter Summary ---
Author Organization [facility] Address [address] [place] [address] Care Team Providers Care Tools Developer Name Role Phone Cynthia Sy DO Unavailable [phone] Francie Whitten MD Primary Care Provider [phone] Mary Beth Dutta SPINNING BATH PATROLLER Unavailable [phone] Reason for Referral * Consultation (Stat) - AuthorizedSpecialtyDiagnoses / ProceduresReferred By ContactReferred To ContactCardiology Diagnoses New onset right bundle branch block (RBBB) Abnormal EKG Preoperative clearance Procedures SD OFFICE/OUTPATIENT NEW HIGH MDM 60 MINUTES Francie Whitten MD [address] [place] [address] Phone: tel: fax: Aristeo Baker MD [address] [place] [address] Phone: tel: fax:[phone] Referral IDStatusReasonStart DateExpiration DateVisits RequestedVisits [id number] Specialty Services Required Encounter Details DateTypeDepartmentCare Team (Latest Contact Info)Asozyttdter36/08/2025Results Follow-Up [facility] Family Medicine [address] [place] [phone] Francie Whitten MD [address] [place] [address] CA ECHO DOPPLER COMPLETE Social History Tobacco UseTypesPacks/DayYears UsedDateSmoking Tobacco: NeverSmokeless [...] times a week06/13/2024How often do you attend scientologist or mu-ism services?More than 4 times per year 4Do you belong to any clubs or organizations such as scientologist groups, unions, fraternal or athletic groups, or school groups?Yes06/13/2024How often do you attend meetings of the clubs or organizations you belong to?More than 4 times per year06/13/2024re you , , , , never , or living with a partner?Ynbopww9206/13/2024UDIT-CAnswerDate RecordedQ1: How often do you have a [...] hard at all06/13/2024HQ-2AnswerDate Recorded Patient Health Questionnaire-2 Qbyrn989Fin[facility] [employer] - Occupational Stress QuestionnaireAnswerDate [...] were you homeless or living in a intermediate (including now)?No06/13/2024CommentsNoSex and Gender InformationValueDate RecordedSex Assigned at IxmxkHzfivj02/05/2023 11:41 AM EDT Legal WiuFltgfc99/15/2023 7:26 PM EDTGender NjawpsupAbrflt78/15/2023 7:26 PM EDT Sexual VswhozclhjoXzcgfrqn62/05/2023 11:41 AM EDTdocumented as of this encounter Miscellaneous Notes * Telephone Encounter - Francie Vidal MA - 07/11/2025 7:58 AM EST Sent to both [facility] and [place] * Telephone Encounter - Francie Vidal MA - 07/11/2025 7:58 AM EST ----- Message from Francie Whitten MD sent at 07/10/2025 5:44 PM EST ----- ----- Message ----- From: Francie Vidal MA Sent: 07/10/2025 9:00 AM EST To: Francie Whitten MD ----- Message from Francie Vidal MA sent at 07/10/2025 9:00 AM EST ----- ----- Message ----- From: Francie Whitten MD Sent: 07/10/2025 8:37 AM EST To: Francie Whitten Client Analyst Pool She has increased trabeculations in the left ventricle. This can be associated with a risk for arrhythmias or clot, but it could also be a normal variant. The edge worker who read the echo suggests a cardiac MRI and I would also suggest a cardiology evaluation. Please schedule those. This does put surgery on hold and Dr Mendoza's office should be notified as well. I sent him a message but notify his office as well. ----- Message ----- From: Interface, Clinisync Img Results In Sent: 07/07/2025 9:11 PM EST To: Francie Whitten MD * Telephone Encounter - Francie Whitten MD - 07/10/2025 5:44 PM EST Order is in. * Telephone Encounter - Francie Vidal MA - 07/10/2025 8:59 AM EST Spoke with pt and she voices understanding. I did put a note in for cardiology and made it STAT. I was wondering how we ordered the cardiac MRI. I just didn't want to order the wrong thing. I did notified Fazios office too. * Telephone Encounter - Francie Vidal MA - 07/10/2025 8:55 AM EST ----- Message from Dr. Francie Whitten sent at 07/10/2025 8:37 AM EST ----- She has increased trabeculations in the left ventricle. This can be associated with a risk for arrhythmias or clot, but it could also be a normal variant. The edge worker who read the echo suggests a cardiac MRI and I would also suggest a cardiology evaluation. Please schedule those. This does put surgery on hold and Dr Mendoza's office should be notified as well. I sent him a message but notify his office as well. ----- Message ----- From: Interface, Clinisync Img Results In Sent: 07/07/2025 9:11 PM EST To: Francie Whitten MD documented in this encounter Plan of Treatment NameTypePriorityAssociated DiagnosesOrder ScheduleAmbulatory referral to CardiologyOutpatient ReferralSTAT New onset right bundle branch block (RBBB) Abnormal EKG Preoperative clearance Expected: 07/10/2025 (Approximate), Expires: 01/08/2026documented as of this encounter Visit Diagnoses Diagnosis New onset right bundle branch block (RBBB) Abnormal EKG Nonspecific abnormal electrocardiogram (ECG) (EKG) Preoperative clearance Unspecified pre-operative examination documented in this encounter Additional Health Concerns AssessmentNoted TimePHQ-9 Depression Total Score: 8:00 AM EDT documented as of this encounter Care Teams Team MemberRelationshipSpecialtyStart DateEnd Date Cynthia Sy DO [address] [facility] [address] [place] [phone] PCP - [employer]12/01/20 Francie Whitten MD [address] [place] [address] PCP - GeneralFamily Medicine12/09/23 Mary Beth Dutta NP [address] [place], [place] [id number] Nurse PractitionerFamily Medicine12/09/23documented as of this encounter
--- OUTSIDE RECORDS SUMMARY | 2025-07-21 07:24 | XMS_ITS | Clinical Summary ---
Author Organization [facility] Access Media 3 [facility] tem Address [id number] [address] [place] [address] Care Team Providers Care Gasoline Tester Name Role Phone Gorge Ramos MD Primary Care Provider [phone] Immunizations ImmunizationAdministration DatesNext DueCOVID-19, mRNA, LNP-S, PF, 30mcg/0.3mL Dose10/13/2020,09/22/2020 Family History Medical HistoryRelationNameCommentsBreast cancerNeg Hx Social History Tobacco UseTypesPacks/DayYears UsedDateSmoking Tobacco: Never AssessedChildcare AnswerDate QcwkpuqiUltypnnjwKgdbrkk01/12/2019EmploymentAnswerDate Recorded HweqtisegrVsqmtjq52/12/2019Purpose - LifeAnswerDate RecordedPurpose and direction in fdcvJujvetm74/11/2021CommentsUnknownSex and Gender InformationValueDate RecordedSex Assigned at BirthNot on fileLegal SexFemale 03/08/2015 11:22 AM EDTGender IdentityNot on fileSexual OrientationNot on file Plan of Treatment DateTypeDepartmentCare Team (Latest Contact Info)Ezbvnqzanjb91/28/2026 1:00 PM ESTAppointment [facility] [address] [facility] [address] [place] [address] Health MaintenanceDue DateLast DoneCommentsDepression Cglntdgkd41/19/1967Tobacco Qlzdhdvwn75/19/1967Adult BMI Guzgyubxu53/19/1973Fall Risk Sgcmxzhvf36/19/2020 COVID-19 Vaccine ( season)503/, 09/22/2020Influenza Wbbizpq78/01/947196, 05/08/2018, 04/24/2017, Additional history exists DTaP,Tdap and Td Vaccines (2 - Td or Tdap)7004/24/2017, 01/22/2002RSV ( or age 60+ yrs) (1 - 1-dose 75+ series)2030Zoster (Shingles) NkjznedPpohbjhgk09/06/2019, 08/15/2018, 07/18/2015 Medical Devices Not on file Insurance Care Teams Team MemberRelationshipSpecialtyStart DateEnd Date Gorge Ramos MD [address] [place] [address] PCP - GeneralFamily Medicine12/12/16
--- OUTSIDE RECORDS SUMMARY | 2025-07-21 07:24 | XMS_ITS | Encounter Summary ---
Author Organization [facility] Address [address] [facility] [place] [address] Care Team Providers Care Puttier Name Role Phone Cynthia Sy DO Unavailable [phone] Francie Whitten MD Primary Care Provider [phone] Mary Beth Dutta RIGHT OF WAY CLEARER Unavailable [phone] Encounter Details DateTypeDepartmentCare Team (Latest Contact Info)Nvvznpwrabc29/08/2025Telephone [facility] Family Medicine [address] [place] [address] Francie Whitten MD [address] [place], [place] [phone] Social History Tobacco UseTypesPacks/DayYears UsedDateSmoking Tobacco: NeverSmokeless [...] times a week06/13/2024How often do you attend latter-day or cheondoism services?More than 4 times per year 06/13/2024o you belong to any clubs or organizations such as latter-day groups, unions, fraternal or athletic groups, or school groups?Yes06/13/2024How often do you attend meetings of the clubs or organizations you belong to?More than 4 times per year06/13/2024re you , , , , never , or living with a partner?Bzzrgpp5406/13/2024UDIT-CAnswerDate RecordedQ1: How often do you have a [...] hard at all06/13/2024HQ-2AnswerDate Recorded Patient Health Questionnaire-2 Aaqdz697Fin[facility] [place] of [employer] - Occupational Stress QuestionnaireAnswerDate [...] steady place to sleep or slept in [facility] (including now)?No 03/05/2023Housing Stability Vital SignAnswerDate RecordedIn the last 12 months, was there a time when you were not able to pay the mortgage or rent on time?No 06/13/2024In the past 12 months, how many times have you moved where you were living?t any time in the past 12 months, were you homeless or living in a retirement (including now)?No06/13/2024CommentsNoSex and Gender InformationValueDate RecordedSex Assigned at IlyhwGegboz98/05/2023 11:41 AM EDT Legal CyxVyzcpb77/15/2023 7:26 PM EDTGender AgyovekwYafflf14/15/2023 7:26 PM EDT Sexual IqhlnmfymgaNmplxzqw27/05/2023 11:41 AM EDTdocumented as of this encounter Miscellaneous Notes * Telephone Encounter - Al Cochran - 07/10/2025 9:[address] dominguez office called preethi has a Cardiology appt on 07/14/25. Ty documented in this encounter Plan of Treatment Not on file documented as of this encounter Visit Diagnoses Not on filedocumented in this encounter Additional Health Concerns AssessmentNoted TimePHQ-9 Depression Total Score: 8:00 AM EDT documented as of this encounter Care Teams Team MemberRelationshipSpecialtyStart DateEnd Date Cynthia Sy DO [address] [facility] [address] [place] [phone] PCP - [employer]12/01/20 Francie Whitten MD [address] [place], [place] [phone] PCP - GeneralFamily Medicine12/09/23 Mary Beth Dutta NP [address] [place], [place] [phone] Nurse PractitionerFamily Medicine12/09/23documented as of this encounter
--- OUTSIDE RECORDS SUMMARY | 2025-07-21 07:24 | XMS_ITS | Encounter Summary ---
Author Organization [facility] Address [address] [place] [address] Care Team Providers Care Fiber Analyst Name Role Phone Cynthia Sy DO Unavailable [phone] Jaquan Day MD Primary Care Provider [phone] Mary Beth Dutta PENSION ADVISER Unavailable [phone] Encounter Details DateTypeDepartmentCare Team (Latest Contact Info)Jlsalycmqsz59/05/2025Clinisync Result Encounter [facility] Department Unsolicited Jaquan Day MD [address] [place], [place] [phone] Social History Tobacco UseTypesPacks/DayYears UsedDateSmoking Tobacco: NeverSmokeless [...] times a week06/13/2024How often do you attend temple or uatsdin services?More than 4 times per year 06/13/2024o you belong to any clubs or organizations such as temple groups, unions, fraIPWireless or athletic groups, or school groups?Yes06/13/2024How often do you attend meetings of the clubs or organizations you belong to?More than 4 times per year06/13/2024re you , , , , never , or living with a partner?Nftrtbi8806/13/2024UDIT-CAnswerDate RecordedQ1: How often do you have a [...] hard at all06/13/2024HQ-2AnswerDate Recorded Patient Health Questionnaire-2 Fpitb775Finmck[facility] [place] of Occupational Health - Occupational Stress QuestionnaireAnswerDate [...] steady place to sleep or slept in [place] (including now)?No 03/05/2023Housing Stability Vital SignAnswerDate RecordedIn [...] now)?No06/13/2024CommentsNoSex and Gender InformationValueDate RecordedSex Assigned at MkwbpXbyzby86/05/2023 11:41 AM EDT Legal WhfMndstk94/15/2023 7:26 PM EDTGender IjpatcuuJrljgo13/15/2023 7:26 PM EDT Sexual GanijstcnmnCaacfemk68/05/2023 11:41 AM EDTdocumented as of this encounter Plan of Treatment Not on file documented as of this encounter Procedures Procedure NamePriorityDate/TimeAssociated DiagnosisCommentsCA ECHO DOPPLER HRIKWGGL74/12/2024 9:09 PM EST documented in this encounter Results * CA ECHO DOPPLER COMPLETE (07/07/2025 9:09 PM EST)Anatomical RegionLaterality ModalityOtherSpecimen (Source)Anatomical Location / LateralityCollection Method / VolumeCollection TimeReceived Time07/07/2025 9:09 PM EST Narrative 07/07/2025 9:10 PM EST [facility] ?[address] ? [place] [address] ? Cardiology Report ? Signed ? Patient: CARMONA,JEAN CLAUDE ? MR#: [id number] ?? : 1955 ?Acct:[id number] ?? Age/Sex: 70 / F ?ADM Date: 07/07/25 ?? Loc: CARD ? Attending Dr: JAQUAN DAY ? Ordering Physician: JAQUAN DAY ?? Date of Service: 07/07/25 ?? Procedure(s): CA echo doppler complete ?? Accession Number(s): [id number] ? cc: JAQUAN DAY ? Patient Name: ? JEAN CLAUDE CARMONA ? MR#: [id number] ? : 1955 ? Exam Date: 07/07/2025 ?? Ordering Doctor: DR JAQUAN DAY M.D. ? ECHOCARDIOGRAM REPORT ? PROCEDURE: ? CA ECHO DOPPLER COMPLETE ? INDICATIONS: ? Pre OP, New onset RBBB ? COMPARISON: ? None. ? DESCRIPTION: ? COMPLETE ECHOCARDIOGRAM Real-time transthoracic ?? echocardiography with 2D, M-mode, spectral and color flow Doppler performed. ? QUALITY: ? Technical quality was good. ? LEFT VENTRICLE: ? Normal chamber size. Mild concentric left ventricular ?? hypertrophy. ??The septum is abnormal in motion likely due to bundle branch ?? block. ??Increased trabeculations noted in the apex of the ventricle. ??Visual ?? estimation of left ventricular ejection fraction is 50-55%. ?? LV EF: ? Lower limits of normal left ventricular ejection fraction, ?? (50-55%). ?? DIASTOLIC: ? Normal diastolic function. ?? ATRIAL SEPTUM: ? LEFT ATRIUM: ? Mild dilatation. ?? RIGHT ATRIUM: ? Normal chamber size. ?? RIGHT VENTRICLE: ? Normal chamber size. Normal right ventricular systolic ?? function. ? TRICUSPID VALVE: Normal mobility and thickness. No stenosis with mild ?? regurgitation. No evidence of pulmonary hypertension. The RVSP measures 26 ?? mmHg. ? MITRAL VALVE: ? Normal mobility and thickness. ?? No evidence of mitral valve ?? stenosis. ??There is no mitral annular calcification. Trivial mitral ?? regurgitation. ? AORTIC VALVE: ? Normal trileaflet appearance. No visible sclerosis. ??Normal ?? leaflet mobility. ??No evidence of aortic valve stenosis. Mild aortic ?? regurgitation. ? AORTIC ROOT: ? Normal diameter and appearance. The aortic root measures 3.3 ?? cm, the ascending aorta measures 3.0 cm, the aortic arch is mildly dilated ?? measuring 3.7 cm. ? PULMONIC VALVE: Grossly normal. No stenosis. No regurgitation. ? PERICARDIUM: ? No evidence of pericardial effusion. ? IVC: ? Collapses with inspiration. The IVS is normal in size measuring 2.0 ?? cm. ? PLEURA: ? CONCLUSION: ? 1. Mild concentric left ventricular hypertrophy with low normal systolic ?? function. ??Estimated LVEF is 50 to 55%. ??Increased trabeculations noted in the ?? apex of the left ventricle. ?? 2. Normal right ventricular size and systolic function. ?? 3. Normal diastolic function. ?? 4. Mild aortic and tricuspid regurgitation. ?? 5. Normal right-sided pressures. ?? 6. Consider cardiac MRI for further assessment of the left ventricular apex. ? Adult Echocardiography Procedure Report ?? Left Ventricle ?? LVEDD (3.7 - 5.6 cm): ? 5.10 cm ?? LVESD (2.2 - 4.0 cm): ? 3.58 cm ?? LVIVS thickness (0.6 - 1.2 cm): ? 1.39 cm ?? LVPW thickness (0.5 - 1.0 cm): ? 1.17 cm ?? e': ? 0.14 m/s ?? E - e': ? 4.30 ?? LVOT Max Gradient: ? 3.38 mm[Hg] ?? LVOT Area (cm2): ? 0.92 m/s ?? Peak Velocity (LVOT): ? 0.92 m/s ?? Mean Velocity (LVOT): ? 0.65 m/s ?? LVOT Diameter ? 2.02 cm ?? Left Ventricular Ejection Fraction: ? 50-55 % ?? Left Atrium ?? LA Volume Index (2D A2C): ? 46.12 ml/m2 ?? Left Atrium Systolic Dimension: ? 4.23 cm ?? Mitral Valve ?? MV E to A Ratio: ? 0.82 ?? Mitral Valve A-Wave Peak Velocity: ? 0.74 m/s ?? Mitral Valve E-Wave Peak Velocity: ? 0.61 m/s ?? Right Ventricle ?? RV Internal Diastolic Dimension: ? 3.53 cm ?? Aorta ?? AO Root Diam: ? 3.27 cm ?? Ascending Ao Diam: ? 3.04 cm ?? Aortic Valve ?? AoV Area (Peak Dwain): ? 2.56 cm2, 2.56 cm2 ?? AoV Area (VTI): ? 2.37 cm2, 2.37 cm2 ?? Deceleration [place]: ? 0.87 m/s2, 1.33 m/s2 ?? Pressure Half-Time: ? 1.03 s, 675.57 ms ?? Peak Velocity(Antegrade Flow): ? 1.15 m/s ?? Peak Gradient(Antegrade Flow): ? 5.31 mm[Hg] ?? Mean Velocity(Antegrade Flow): ? 0.79 m/s ?? Mean Gradient(Antegrade Flow): ? 2.87 mm[Hg] ?? Velocity Time Integral: ? 29.79 cm ?? Tricuspid Valve ?? Peak Velocity (Regurgitant Flow): ? 2.10 m/s, 2.39 m/s, 2.21 m/s ?? Pulmonic Valve ?? Mean Gradient: ? 0.90 mm[Hg] ?? Mean Velocity: ? 0.45 m/s ?? Peak Velocity: ? 0.67 m/s, 0.83 m/s ?? Peak Gradient: ? 2.75 mm[Hg], 1.78 mm[Hg] ?? Right Atrium ?? Right Atrium Systolic Pressure: ? 52.84 ml, 52.84 ml ? Dictated by: Sridevi Baker M.D. on 07/07/2025 at 21:01 ? Approved by: Sridevi Baker M.D. on 07/07/2025 at 21:09 ? Dictated By: ?SRIDEVI BAKER ? Signed By: ?07/07/252109 ? DD/ 2109 ? TD/TT: ? Strategic Marketing Associate: Procedure Note Radiology, Radiologist, MD - 07/07/2025 [place] [address] Cardiology Report Signed Patient: JEAN CLAUDE CARMONAMR#: [id number] : 5Acct:[id number] Age/Sex: 70 / FADM Date: 07/07/25 Loc: CARD Attending Dr: JAQUAN DAY Ordering Physician: JAQUAN DAY Date of Service: 07/07/25 Procedure(s): CA echo doppler complete Accession Number(s): [id number] cc: JAQUAN DAY Patient Name: JEAN CLAUDE CARMONA MR#: [id number] : 1955 Exam Date: 07/07/2025 Ordering Doctor: DR JAQUAN DAY M.D. ECHOCARDIOGRAM REPORT PROCEDURE: CA ECHO DOPPLER COMPLETE INDICATIONS: Pre OP, New onset RBBB COMPARISON: None. DESCRIPTION: COMPLETE ECHOCARDIOGRAM Real-time transthoracic echocardiography with 2D, M-mode, spectral and color flow Dopplerperformed. QUALITY: Technical quality was good. LEFT VENTRICLE: Normal chamber size. Mild concentric left ventricular hypertrophy. The septum is abnormal in motion likely due to bundle branch block. Increased trabeculations noted in the apex of the ventricle.Visual estimation of left ventricular ejection fraction is 50-55%. LV EF: Lower limits of normal left ventricular ejection fraction, (50-55%). DIASTOLIC: Normal diastolic function. ATRIAL SEPTUM: LEFT ATRIUM: Mild dilatation. RIGHT ATRIUM: Normal chamber size. RIGHT VENTRICLE: Normal chamber size. Normal right ventricularsystolic function. TRICUSPID VALVE: Normal mobility and thickness. No stenosis with mild regurgitation. No evidence of pulmonary hypertension. The RVSP measures 26 mmHg. MITRAL VALVE: Normal mobility and thickness. No evidence of mitralvalve stenosis. There is no mitral annular calcification. Trivial mitral regurgitation. AORTIC VALVE: Normal trileaflet appearance. No visible sclerosis.Normal leaflet mobility. No evidence of aortic valve stenosis. Mild aortic regurgitation. AORTIC ROOT: Normal diameter and appearance. The aortic root measures3.3 cm, the ascending aorta measures 3.0 cm, the aortic arch is mildly dilated measuring 3.7 cm. PULMONIC VALVE: Grossly normal. No stenosis. No regurgitation. PERICARDIUM: No evidence of pericardial effusion. IVC: Collapses with inspiration. The IVS is normal in size measuring2.0 cm. PLEURA: CONCLUSION: 1. Mild concentric left ventricular hypertrophy with low normal systolic function. Estimated LVEF is 50 to 55%. Increased trabeculations noted inthe apex of the left ventricle. 2. Normal right ventricular size and systolic function. 3. Normal diastolic function. 4. Mild aortic and tricuspid regurgitation. 5. Normal right-sided pressures. 6. Consider cardiac MRI for further assessment of the left ventricularapex. Adult Echocardiography Procedure Report Left Ventricle LVEDD (3.7 - 5.6 cm): 5.10 cm LVESD (2.2 - 4.0 cm): 3.58 cm LVIVS thickness (0.6 - 1.2 cm): 1.39 cm LVPW thickness (0.5 - 1.0 cm): 1.17 cm e': 0.14 m/s E - e': 4.30 LVOT Max Gradient: 3.38 mm[Hg] LVOT Area (cm2): 0.92 m/s Peak Velocity (LVOT): 0.92 m/s Mean Velocity (LVOT): 0.65 m/s LVOT Diameter 2.02 cm Left Ventricular Ejection Fraction: 50-55 % Left Atrium LA Volume Index (2D A2C): 46.12 ml/m2 Left Atrium Systolic Dimension: 4.23 cm Mitral Valve MV E to A Ratio: 0.82 Mitral Valve A-Wave Peak Velocity: 0.74 m/s Mitral Valve E-Wave Peak Velocity: 0.61 m/s Right Ventricle RV Internal Diastolic Dimension: 3.53 cm Aorta AO Root Diam: 3.27 cm Ascending Ao Diam: 3.04 cm Aortic Valve AoV Area (Peak Dwain): 2.56 cm2, 2.56 cm2 AoV Area (VTI): 2.37 cm2, 2.37 cm2 Deceleration [place]: 0.87 m/s2, 1.33 m/s2 Pressure Half-Time: 1.03 s, 675.57 ms Peak Velocity(Antegrade Flow): 1.15 m/s Peak Gradient(Antegrade Flow): 5.31 mm[Hg] Mean Velocity(Antegrade Flow): 0.79 m/s Mean Gradient(Antegrade Flow): 2.87 mm[Hg] Velocity Time Integral: 29.79 cm Tricuspid Valve Peak Velocity (Regurgitant Flow): 2.10 m/s, 2.39 m/s, 2.21 m/s Pulmonic Valve Mean Gradient: 0.90 mm[Hg] Mean Velocity: 0.45 m/s Peak Velocity: 0.67 m/s, 0.83 m/s Peak Gradient: 2.75 mm[Hg], 1.78 mm[Hg] Right Atrium Right Atrium Systolic Pressure: 52.84 ml, 52.84 ml Dictated by: Sridevi Baker M.D. on 07/07/2025 at 21:01 Approved by: Sridevi Baker M.D. on 07/07/2025 at 21:09 Dictated By: SRIDEVI BAKER Signed By:07/07/252109 DD/ 08 TD/TT: Strategic Marketing Associate: Authorizing ProviderResult TypeResult StatusJaquan Day [facility] Final Result documented in this encounter Visit Diagnoses Not on filedocumented in this encounter Additional Health Concerns AssessmentNoted TimePHQ-9 Depression Total Score: 8:00 AM EDT documented as of this encounter Care Teams Team MemberRelationshipSpecialtyStart DateEnd Date Cyn[place] DO [address] [phone] PCP - [employer]12/01/20 Jaquan Day MD [address] [facility] [place] [address] [facility] - [facility]/09/23 Mary Beth Dutta NP [address] [facility] [place] [address] Nurse PractitionerSaint Vincent Hospital Medicine12/09/23documented as of this encounter
--- OUTSIDE RECORDS SUMMARY | 2025-07-21 07:25 | XMS_ITS | Clinical Summary ---
Author Organization [facility] Address [address] [place] [address] Care Team Providers Care Packaging Specialist Name Role Phone Cynthia Sy DO Unavailable [phone] Francie Day MD Primary Care Provider [phone] Mary Beth Dutta MEALS [employer] WHEELS DRIVER Unavailable [phone] Allergies Active AllergyReactionsCriticalityNoted DateCommentsWound Dressing AdhesiveRash Low07/10/2023 Tapes on skin too long causes rash Shellfish Protein-Containing Drug GzenbnniTluiakl24/28/2023 Medications MedicationSigDispense QuantityRefillsLast FilledStart DateEnd DateStatus Multiple Vitamins-Minerals (Centrum Silver 50+Women) tablet Active aspirin 81 MG EC tablet Take 81 mg by mouth in the morning.Active fluticasone (Flonase) 50 MCG/ACT nasal spray Indications:Otalgia, leftSPRAY 2 SPRAYS INTO EACH NOSTRIL IN THE MORNING SHAKE GENTLY 16 mL 1103Active Multiple Vitamins-Minerals (EYE VITAMINS & MINERALS PO) Take by mouthActive Ppbagsv-Mcoxmtgti-Mnfoecl D (CALCIUM 1200+D3 PO) 06/10/2024ctive atorvastatin (Lipitor) 10 MG tablet Indications:Mixed hyperlipidemiaTAKE 1 TABLET (10 MG) BY MOUTH DAILY. 90 tablet 5Active atorvastatin (Lipitor) 10 MG tablet Indications:Mixed hyperlipidemiaTAKE 1 TABLET (10 MG) BY MOUTH DAILY. 90 tablet Discontinued Active Problems ProblemNoted DateDiagnosed DateOtalgia, left04/08/2023MI 40.0-44.9, adult 03/06/2023OSA (obstructive sleep apnea)03/06/2023 Overview (03/06/2023): compliant with results improve, over 97% compliant fax note to [phone] attn PAP DEPT I have reviewed the objective evidence of adherence to therapy History of laparoscopic mqqwhuinzppcfvr93/28/2023Mixed ykrfisyercgmug50/28/2023 Assessment & Plan (07/06/2025 5:49 PM EST): Continue lipitor. Assessment & Plan (04/05/2025 11:43 AM EDT): -on a statin Resolved Problems ProblemNoted DateDiagnosed DateResolved DateAbnormal lrpipljgn21/28/2023 03/06/2023Excessive daytime romqoqchzw92Morbid obesity due to excess vnpfphic37Other chronic pain Mdxohwdiuud67rimary osteoarthritis involving multiple joints Encounters DateTypeDepartmentCare KjzbShxtohtguwg45/11/2025Orders Only [address] [place] [address] Francie Vidal MA New onset right bundle branch block (RBBB); Abnormal EKG; Preoperative nzzyjmxqx02/10/2025Telephone [address] [facility] [place] [address] Francie Day MD 07/10/2025Orders Only [address] [facility] [place] [address] Francie Day MD Abnormal echocardiogram (Primary Dx)07/10/2025Telephone [address] [facility] [place] [address] Francie Day MD 07/10/2025Results Follow-Up [facility] [address] [place] [address] Francie Day MD CA ECHO DOPPLER ROMGLIDH51/05/2025linisync Result Encounter [facility] External Department Unsolicited Francie Day MD 07/06/2025 9:30 AM ESTConsult [facility] [address] [place] [address] Francie Day MD New onset right bundle branch block (RBBB) (Primary Dx); Preoperative clearance; Abnormal EKG; Morbid (severe) obesity due to excess calories ([facility]); Mixed hyperlipidemia; Obesity, class 2; Body mass index (BMI) 39.0-39.9, adult07/06/20254756Akltvn62/04/2025Refill [facility] [address] [place] [address] Mary Beth Dutta NP Mixed lyqsoqnpegtktc80/02/0751Hopmue65/25/8632Uvtrjn66/24/2025linisync Result Encounter [facility] External Department Unsolicited Benjamin Mendoza, 06/26/2025linisync Result Encounter [facility]OMS External Department Unsolicited Benjamin Mendoza, DO 06/13/2025Telephone [facility] [address] [place] [address] Francie Day MD 06/12/2025 10:50 AM ESTConsult [facility]CDONALD [address] [place] [address] [place] [address] Benjamin Mendoza DO Pre-op examination; Complex ovarian cyst; Ovarian cyst, left; Pelvic pain in female; Family history of ovarian cancer; Enlarged ovary; Endometrial polyp06/05/20257005Lpqpgs35/27/2025Telephone [facility] [address] [place] [address] Mary Beth Dutta NP 05/25/2025 9:30 AM EDTAncillary Procedure [facility] Zeinab OBGYMirela [address] [facility] [place] [address] Ovarian cyst, left; Complex ovarian cyst05/24/20250250Vybapd80/21/2025External Result Encounter [facility]S External Department Unsolicited Benjamin Mendoza DO 05/22/2025 8:50 AM EDTConsult [facility]ab Feng [facility] [place] [address] Benjamin Mendoza, Ovarian cyst, left; Complex ovarian cyst; Pelvic pain in female; Family history of ovarian hbpgio3105/22/2025amboo flowsheet [facility] Feng [facility] [place] [address] Benjamin Mendoza, DO 05/17/2025Travelfrom Last 3 Months Immunizations ImmunizationAdministration DatesNext DueHep A / Hep B12,12/13/2021, 11/13/2021Influenza Whole05/25/2013Influenza, High Dose Seasonal, Preservative Free04/24/2024,05/04/2019Influenza, High-dose Seasonal, Quadrivalent, Preservative Free04/13/2022Influenza, Seasonal, Quadrivalent, Adjuvanted 05/14/2023,05/09/2021Influenza, injectable, gyqhitypozpe84/29/2014Influenza, injectable, quadrivalent, preservative free05/08/2018,04/24/2017,05/24/2016 Pneumococcal Conjugate PCV Pneumococcal Polysaccharide PPSV23 06/05/2021SV, recombinant, protein subunit RSVpreF, adjuvant reconstitu, 120mcg/0.5mL, PF (Arexvy)06/10/2023Td (adult), 5 Lf tetanus toxoid, preservative free, yfmctmwy98/22/1856Mcki11/22/2017Zoster, Sqwnbhnowej86/06/2019,08/15/2018 Zoster, live07/18/2015 Family History Medical HistoryRelationNameCommentsColon cancerBrotherKidney cancerBrother Alcohol abuseFatherBill Smithna, Sr.Colon cancerMaternal GrandfatherStroke Maternal GrandmotherFlorence Alpesh WallsTuberculosisMaternal Grandmother Charlene WallsCancerMotherAlena HannaDepressionMotherAlena HannaHeart diseaseMotherAlena HannaMacular degenerationMotherAlena HannaMiscarriages / StillbirthsMotherAlena HannaObesityMotherAlena HannaOvarian cancerMotherAlena HannaVision lossMotherAlena HannaKidney cancerSisterrenal cell carcinomaSister RelationNameStatusCommentsBrotherDaughterAliveFatherRichlashonda Smithna, Sr. Maternal GrandfatherMaternal GrandmotherFlorence Alpesh WallsMoYon Marino DeceasedSisterDeceasedSonAlive Social History Tobacco UseTypesPacks/DayYears UsedDateSmoking [...] times a week06/13/2024How often do you attend amish or episcopal services?More than 4 times per year 06/13/2024o you belong to any clubs or organizations such as amish groups, unions, fraternal or athletic groups, or school groups?Yes06/13/2024How often do you attend meetings of the clubs or organizations you belong to?More than 4 times per year06/13/2024re you , , , , never , or living with a partner?Fztvvdl9906/13/2024UDIT-CAnswerDate RecordedQ1: How often do you have a [...] hard at all06/13/2024HQ-2AnswerDate Recorded Patient Health Questionnaire-2 Hpsub910[facility] [place] of Occupational [facility] - Occupational Stress QuestionnaireAnswerDate [...] steady place to sleep or slept in [facility] (including now)?No 03/05/2023Housing Stability Vital SignAnswerDate RecordedIn the last 12 months, was there a time when you were not able to pay the mortgage or rent on time?No 06/13/2024In the past 12 months, how many times have you moved where you were living?t any time in the past 12 months, were you homeless or living in a custodial (including now)?No06/13/2024CommentsNoSex and Gender InformationValueDate RecordedSex Assigned at CnhtyLdusju31/05/2023 11:41 AM EDT Legal FelTsvgka69/15/2023 7:26 PM EDTGender MlofrhutQhotju55/15/2023 7:26 PM EDT Sexual ScpmqldelikDjfphnmx45/05/2023 11:41 AM EDT Last Filed Vital Signs Vital SignReadingTime TakenCommentsBlood Bgfschxt330/6807/06/2025 9:33 AM EST Zeqbs136007/06/2025 9:33 AM HEAJbsjsnkhwvu39.1 ??C (96.9 ??F)03/06/2023 8:31 AM EDTRespiratory Yfby743912/09/2023 1:00 PM EDTOxygen Mjimkzcfrw56%07/06/2025 9:33 AM ESTInhaled Oxygen Concentration--Msaari97.2 kg (212 lb)07/06/2025 9:33 AM EST Upfpnm252.9 cm (5' 1 )07/06/2025 9:33 AM ESTBody Mass Index40.0607/06/2025 9:33 AM EST Plan of Treatment Health MaintenanceDue DateLast DoneCommentsCT Jmnccglqypdw1955FIT 1955FOBT1955 3551Gxkbesfcctaed04/19/2892Txkggpyvhzj46/25/ Medicare Annual Wellness (AWV)/06/2025, 01/11/2025, 12/09/2023, Additional history iqsxvfTefyjchoh66/03/202607/10/2024, 02/01/2024, 01/29/2023, Additional history existsColorectal Cancer Bznukunxq30/15/2027FIT-DNA03/17/2027 03/17/2024, 03/13/2021, 03/03/2018, Additional history existsPneumococcal Vaccine: 65+ DdgjtDlvmxsvpa83/03/2021, 05/21/2020COVID-19 VaccineDiscontinued 04/06/2025, 11/08/2024, 04/24/2024, Additional history existsInfluenza Vaccine Phmbdbliq47/04/2025, 04/24/2024, 05/14/2023, Additional history exists Procedures Procedure NamePriorityDate/TimeAssociated DiagnosisCommentsCA ECHO DOPPLER NYZOSNUI89/05/2025 9:09 PM EST CCF TDJOIdtuhel70/24/2025 9:55 AM EST SRMCOH PROTHROMBIN TIME INR W/O LTVBFqrcixu21/24/2025 9:55 AM EST ALL BASIC METABOLIC KNWVHWtazxvq34/24/2025 9:55 AM EST ALL CBC WITH AUTO YXAZHxsclds71/24/2025 9:55 AM EST ECG 12-LEAD06/26/2025 8:49 AM EST US PELVIC COMPLETE W/ IPZiysttn75/23/2025 10:14 AM EDT Ovarian cyst, left Complex ovarian cyst CA 702Vyrilcr55/21/2025 9:11 AM EDT HCG, TOTAL, VJMxbmifd23/21/2025 9:11 AM EDT KFDSvpfskd09/21/2025 9:11 AM EDT ALPHA FETOPROTEIN, TUMOR VJCSSYBoinvzg39/21/2025 9:11 AM EDT LACTATE DEHYDROGENASE, YMSMYUZFUHRnejdtg83/21/2025 9:11 AM EDT BI MAMMOGRAM SCREENING TOMOSYNTHESIS SEMKEEXODGptgblz41/03/2025 8:47 AM EDT Encounter for screening mammogram for malignant neoplasm of breast LAB COLOGUARD?? COLON CANCER FYYNWGRghtlgv54/15/2024 10:05 AM EDT Encounter for screening for malignant neoplasm of colon from Last 3 Months or Most Recently Relevant to Health Maintenance Results * CA ECHO DOPPLER COMPLETE (07/07/2025 9:09 PM EST)Anatomical RegionLaterality ModalityOtherSpecimen (Source)Anatomical Location / LateralityCollection Method / VolumeCollection TimeReceived Time07/07/2025 9:09 PM EST Narrative 07/07/2025 9:10 PM EST [facility] ?[address] ? [place] [address] ? Cardiology Report ? Signed ? Patient: JEAN CLAUDE MILLAN ? MR#: [id number] ?? : 1955 ?Acct:[id number] ?? Age/Sex: 70 / F ?ADM Date: 07/07/25 ?? Loc: CARD ? Attending Dr: FRANCIE DAY ? Ordering Physician: FRANCIE DAY ?? Date of Service: 07/07/25 ?? Procedure(s): CA echo doppler complete ?? Accession Number(s): [id number] ? cc: FRANCIE DAY ? Patient Name: ? JEAN CLAUDE MILLNA ? MR#: [id number] ? : 1955 ? Exam Date: 07/07/2025 ?? Ordering Doctor: DR FRANCIE DAY M.D. ? ECHOCARDIOGRAM REPORT ? PROCEDURE: [...] ? 2.37 cm2, 2.37 cm2 ?? Deceleration Independence: ? 0.87 m/s2, 1.33 m/s2 ?? Pressure [...] ml, 52.84 ml ? Dictated by: Sridevi Bay M.D. on 07/07/2025 at 21:01 ? Approved by: Sridevi Bay M.D. on 07/07/2025 at 21:09 ? Dictated By: ?SRIDEVI BAY ? Signed By: ?07/07/252109 ? DD/ 08 ? TD/TT: ? Scientific Associate: Procedure Note Radiology, Radiologist, MD - 07/07/2025 [place] [address] Cardiology Report Signed Patient: JEAN CLAUDE MILLAN#: [id number] : 5Acct:[id number] Age/Sex: 70 / FADM Date: 07/07/25 Loc: CARD Attending Dr: FRANCIE DAY Ordering Physician: FRANCIE DAY Date of Service: 07/07/25 Procedure(s): CA echo doppler complete Accession Number(s): [id number] cc: SHAYALTONFRANCIE Patient Name: JEAN CLAUDE MILLAN MR#: [id number] : 1955 Exam Date: 07/07/2025 Ordering Doctor: DR FRANCIE DAY M.D. ECHOCARDIOGRAM REPORT PROCEDURE: CA ECHO [...] Area (VTI): 2.37 cm2, 2.37 cm2 Deceleration Independence: 0.87 m/s2, 1.33 m/s2 Pressure Half-Time: 1.03 [...] 52.84 ml, 52.84 ml Dictated by: Sridevi Bay M.D. on 07/07/2025 at 21:01 Approved by: Sridevi Bay M.D. on 07/07/2025 at 21:09 Dictated By: SRIDEVI BAY Signed By:07/07/252109 DD/ 08 TD/TT: Scientific Associate: Authorizing ProviderResult TypeResult StatusFrancie Day [facility] CITYLINISYMO IMAGING Final Result * SRMCOH PROTHROMBIN TIME INR W/O COUM (06/26/2025 9:55 AM EST)ComponentValueRef RangeTest MethodAnalysis TimePerformed AtPathologist SignaturePROTHROMBIN TIME10.59.0 - 11.6 secTBHTBH INR0.99TBHComment: DESIRED INR: 2.0-3.0 CONDITIONS NOT LISTED BELOW 2.5-3.5 FOR PROSTHETIC HEART VALVE REPLACEMENT 2.5-3.5 RECURRENT THROMBOSIS Specimen (Source)Anatomical Location / LateralityCollection Method / Volume Collection TimeReceived Time06/26/2025 9:55 AM EST06/26/2025 9:59 AM EST Narrative [facility] - 06/26/2025 10:50 AM EST Authorizing ProviderResult TypeResult StatusCorey Reji DOCLINISYNCFinal Result Performing OrganizationAddressCity/State/ZIP CodePhone Number [facility] * CCF APTT (06/26/2025 9:55 AM EST)ComponentValueRef RangeTest MethodAnalysis TimePerformed AtPathologist SignaturePARTIAL THROMBOPLASTIN TIME26.022.3 - 36.2 secTBHSpecimen (Source)Anatomical Location / LateralityCollection Method / VolumeCollection TimeReceived Time06/26/2025 9:55 AM EST06/26/2025 9:59 AM EST Narrative [facility] - 06/26/2025 10:50 AM EST Authorizing ProviderResult TypeResult StatusCorey Reji DOCLINISYNCFinal Result Performing OrganizationAddressCity/State/ZIP CodePhone Number [facility] * ALL CBC WITH AUTO DIFF (06/26/2025 9:55 AM EST)ComponentValueRef RangeTest MethodAnalysis TimePerformed AtPathologist SignatureTBH WBC4.74.0 - 11.0 10 3/uLTBHTBH RBC4.254.20 - 5.40 10 6/uLTBHTBH HGB13.012.0 - 16.0 g/dLTBHTBH HCT 39.436.0 - 48.0 %TBHTBH MCV92.781.0 - 99.0 fLTBHTBH MCH30.626.7 - 34.0 pgTBH TBH MCHC33.029.9 - 35.2 g/dLTBHTBH RDW14.211.0 - 15.0 %TBHTBH OEJ598811 - 450 10 3/uLTBHTBH MPV10.09.5 - 13.5 fLTBHNEUTROPHILS PERCENT AUTO56.143.0 - 75.0 % TBHLYMPHOCYTES PERCENT AUTO29.920.5 - 60.0 %TBHMONOCYTES PERCENT AUTO10.41.7 - 12.0 %TBHTBH EO %2.30.9 - 7.0 %TBHBASOPHILS PERCENT AUTO1.10.2 - 2.0 %TBH IMMATURE GRANULOCYTES PCT AUTO0.20.0 - 0.5 %TBHNEUTROPHILS ABSOLUTE AUTO2.71.4 - 6.5 10 3/uLTBHLYMPHOCYTES ABSOLUTE AUTO1.41.2 - 3.8 10 3/uLTBHMONOCYTES ABSOLUTE AUTO0.50.3 - 0.8 10 3/uLTBHTBH EO #0.10.0 - 0.7 10 3/uLTBHBASOPHILS ABSOLUTE AUTO0.10.0 - 0.1 10 3/uLTBHIMMATURE GRANULOCYTES ABS AUTO0.010.00 - 0.03 10 3/uLTBHSpecimen (Source)Anatomical Location / LateralityCollection Method / VolumeCollection TimeReceived Time06/26/2025 9:55 AM EST06/26/2025 9:59 AM EST Narrative [facility] - 06/26/2025 10:15 AM EST Authorizing ProviderResult TypeResult StatusCorey Reji DOCLINISYNCFinal Result Performing OrganizationAddressCity/State/ZIP CodePhone Number [facility] * ALL BASIC METABOLIC PANEL (06/26/2025 9:55 AM EST)ComponentValueRef RangeTest MethodAnalysis TimePerformed AtPathologist PywgxdzbtBYEIOM797661 - 145 mmol/L TBHPOTASSIUM3.93.5 - 5.1 mmol/ZUVUECSXQRRT06804 - 107 mmol/LTBHCARBON DIOXIDE 30.621.0 - 32.0 mmol/LTBHANION GAP12.9VOBSQRRMJC5069 - 106 mg/dLTBHBLOOD UREA IJBPIBFK93.07.0 - 18.0 mg/dLTBHCREATININE0.870.55 - 1.02 mg/dLTBHTBH EGFR-AF BANGLADESHI>60>=60 mL/min/1.73m 2TBHTBH EGFR-NON AF BANGLADESHI>60>=60 mL/min/1.73m 2TBHBUN CREATININE RATIO16.9QOMFPJZYTD3.28.5 - 10.1 mg/dLTBHSpecimen (Source) Anatomical Location / LateralityCollection Method / VolumeCollection Time Received Time06/26/2025 9:55 AM EST06/26/2025 9:59 AM EST Narrative [facility] - 06/26/2025 10:17 AM EST Authorizing ProviderResult TypeResult StatusCorey Reji DOCLINISYNCFinal Result Performing OrganizationAddressCity/State/ZIP CodePhone Number [facility] * ECG 12-LEAD (06/26/2025 8:49 AM EST)Anatomical RegionLateralityModalityOther Specimen (Source)Anatomical Location / LateralityCollection Method / Volume Collection TimeReceived Time06/26/2025 8:49 AM EST Narrative 06/26/2025 7:35 PM EST [facility] ?[address] ? [place] [address] ? Electrocardiograph Report ? Signed ? Patient: JEAN CLAUDE MILLAN ? MR#: [id number] ?? : 1955 ?Acct:[id number] ?? Age/Sex: 70 / F ?ADM Date: 06/26/25 ?? Loc: PST ? Attending Dr: Benjamin Mendoza D.O. ? Ordering Physician: Benjamin Mendoza D.O. ?? Date of Service: 06/26/25 ?? Procedure(s): ECG 12 lead ?? Accession Number(s): [id number] ? cc: ?[facility] ? Test Date: ?2025-06-26 ?? Pat Name: ? JEAN CLAUDE MILLAN ?Department: ? Room: ? - ?? Gender: ? Female ? Kraft Digester Operator: ? : ?1955 ? Requested By: ?? Order Number: [id number] ?Reading MD: ?? SRIDEVI ??Thaddeus BAY ? Measurements ?? Intervals ?[place] ? Rate: ? 57 ? P: ?57 ?? MD: ? 155 ?QRS: ?-6 ?? QRSD: ? 146 ?T: ?-6 ?? QT: ? 431 ? QTc: ?423 ? Interpretive Statements ?? SINUS BRADYCARDIA ?? RIGHT BUNDLE BRANCH BLOCK [120+ ms QRS DURATION, UPRIGHT V1, 40+ ms S IN ?? I/aVL/V4/V5/V6] ?? Abnormal ECG ?? No previous ECG available for comparison ?? Electronically Signed On 06-26-2025 19:35:21 EST by SRIDEVI ??Thaddeus BAY ? Dictated By: ?SRIDEVI BAY ? Signed By: ?11/24/25 1935 ? DD/ 0849 ? TD/TT: ? Scientific Associate: Procedure Note Radiology, Radiologist, - 06/26/2025 [place] [address] Electrocardiograph Report Signed Patient: JEAN CLAUDE MILLANMR#: [id number] : 5Acct:[id number] Age/Sex: 70 / FADM Date: 06/26/25 Loc: PST Attending Dr: Benjamin Mendoza D.O. Ordering Physician: Benjamin Mendoza D.O. Date of Service: 06/26/25 Procedure(s): ECG 12 lead Accession Number(s): [id number] cc: [facility] Test Date: 2025-06-26 Pat Name: JEAN CLAUDE MILLAN Department: Room: - Gender: Female Kraft Digester Operator: : 1955 Requested By: Order Number: [id number] Reading MD: SRIDEVI BAY M.D. Measurements Intervals [place] Rate: 57 P: 57 MD: 155 QRS: -6 QRSD: 146 T: -6 QT: 431 QTc: 423 Interpretive Statements SINUS BRADYCARDIA RIGHT BUNDLE BRANCH BLOCK [120+ ms QRS DURATION, UPRIGHT V1, 40+ ms S IN I/aVL/V4/V5/V6] Abnormal ECG No previous ECG available for comparison Electronically Signed On 06-26-2025 19:35:21 EST by SRIDEVI BAY M.D. Dictated By: SRIDEVI BAY Signed By:06/26/251934 DD/ 0849 TD/TT: Scientific Associate: Authorizing ProviderResult TypeResult StatusCorey Reji DOCLINISYNC IMAGINGFinal Result * US Pelvis w/ TV (05/25/2025 10:14 [...] Lee MD Authorizing ProviderResult TypeResult StatusCorey Reji JOHNSON US PROCEDURESFinal Result * AFP tumor marker [...] Performing Organization Information ?Site ID: QPT ?Name: [employer] [facility] ?Address: [address] [place] [address] ?Director: Bj Ambriz MD Authorizing ProviderResult TypeResult StatusCorey Reji [facility] BLOOD ORDERABLES Final ResultPerforming OrganizationAddressCity/State/ZIP CodePhone Number [...] Performing Organization Information ?Site ID: QPT ?Name: [employer] [facility] ?Address: [address] [place] [address] ?Director: Bj Ambriz MD Authorizing ProviderResult TypeResult [...] or approved by the FDA or the patcher of the assay. Specimen (Source)Anatomical Location / LateralityCollection Method / Volume Collection TimeReceived Time05/23/2025 9:11 AM EDT1 9:11 AM EDT Narrative Resulting Agency Comment Performing Organization Information ?Site ID: QPT ?Name: [employer] [facility] ?Address: [address] [place] [phone] ?Director: Bj Ambriz MD Authorizing ProviderResult TypeResult StatusCorey Reji DOL[facility] BLOOD ORDERABLES Final ResultPerforming OrganizationAddressCity/State/ZIP CodePhone Number [facility]ST * Lactate dehydrogenase, isoenzymes (05/23/2025 9:11 AM EDT)ComponentValueRef RangeTest MethodAnalysis TimePerformed AtPathologist WypehusojXD69539 - 32 % UZJBWSZ84915 - 42 %HPJBFPC07759 - 30 %CTHBIVJ710 - 13 %NFHNIGQ912 - 18 %QUEST INTERPRETATIONCANCELEDQUESTComment:Result canceled by the ancillary.Specimen (Source)Anatomical Location / LateralityCollection Method / VolumeCollection TimeReceived Time05/23/2025 9:11 AM EDT1 9:11 AM EDT Narrative Resulting Agency Comment Performing Organization Information ?Site ID: AMD ?Name: [employer] ?Address: [address] [place] [address] [address] [place] ?Director: Isaac Patterson M.D.,PhD Authorizing ProviderResult TypeResult StatusCorey Reji DOLAB BLOOD ORDERABLES Final ResultPerforming OrganizationAddressCity/State/ZIP CodePhone Number [facility] * (ABNORMAL) CEA (05/23/2025 [...] Performing Organization Information ?Site ID: QPT ?Name: [employer] [facility] ?Address: [address] [place] [phone] ?Director: Bj Ambriz MD Authorizing ProviderResult TypeResult [...] BY: Ancelmo Rangel M.D. Authorizing ProviderResult TypeResult StatusSaraSutter Delta Medical Center NPIM BI PROCEDURES Final Result * Cologuard?? colon cancer screening (03/17/2024 10:05 AM EDT)ComponentValueRef RangeTest MethodAnalysis TimePerformed AtPathologist SignatureNONINV COLON CA DNA+OCC BLD SCRN STL-IGVJskuwshcAetlothd63/20/2024 8:45 PM EDTEXShoulder Options (CLIA #:[id number])Comment: NEGATIVE TEST RESULT. A negative Cologuard result [...] screened with both Cologuard and colonoscopy. (Tad Wallace, N Engl J Med 2014;370(14):9184-6266) The normal value (reference range) for this assay is negative. COLOGUARD RE-SCREENING RECOMMENDATION: Periodic colorectal cancer screening is an important part ofpreventive healthcare for asymptomatic individuals at average risk for colorectal cancer. ??Following a negative Cologuard result, the [place] [employer] and U.S. Multi-Society Task Force screening guidelines recommend a Cologuard re-screening interval of 3 years. References: [place] [employer] Guideline for Colorectal Cancer Screening: https://www.cancer.or g/cancer/fyyzj-uvfzmu-pggvym/xijykukat-giphwrllr-ntbuvao/acs-recommendations.htm deidre; Neo WOOD, Nish MAYER, Corinna DOMINGO, Colorectal Cancer Screening: Recommendations for Physicians and Patients from the U.S. Multi-Society Task Force on Colorectal Cancer Screening , Am J Gastroenterology 2017; 112:1182-2166. TEST DESCRIPTION: Composite algorithmic analysis of stool [...] (Tad Ramirez al, N Engl J Med 2014;370(14):7935-3478.) Cologuard may produce a false negative or false positive result (no colorectal cancer or precancerous polyp present at colonoscopy follow up). A negative Cologuard test result does not guarantee the absence of CRC or advanced adenoma (pre-cancer). The current Cologuard screening interval is every 3 years. ([place] [employer] and U.S. Multi-Society Task Force). Cologuard performance data in a 10,000 patient pivotal study using colonoscopy as the reference method can be accessed at the following location: www.i-Neumaticos.Medabil/results. Additional description of the Cologuard test process, warnings and precautions can be found at www.cologuard.com. Specimen (Source)Anatomical Location / LateralityCollection Method / Volume Collection TimeReceived TimeStool specimen (specimen)03/17/2024 10:05 AM EDT 03/18/2024 1:17 PM EDT Narrative Authorizing ProviderResult TypeResult StatusSalinda Dutta [facility]LECULAR DIAGNOSTICS ORDERABLESFinal ResultPerforming OrganizationAddressCity/State/ZIP CodePhone Number [employer] (CLIA #:[id number]) [address] [place] [address], from Last 3 Months or Most Recently Relevant to Health Maintenance Insurance Advance Directives TypeDate RecordedPatient RepresentativeExplanationAdvance Directives and Living Will Living will and POA Care Teams Team MemberRelationshipSpecialtyStart DateEnd Date Cynthia Sy DO [address] [facility] [address] [place] [id number] PCP - [employer]12/01/20 Francie Day MD [address] [place] [address] PCP - GeneralFamily Medicine12/09/23 Mary Beth Dutta NP [address] [place], [place] [id number] Nurse PractitionerFamily Medicine12/09/23
--- OUTSIDE RECORDS SUMMARY | 2025-07-21 07:25 | XMS_ITS | Clinical Summary ---
Author Organization [facility] Address [address] [place] [address] Care Team Providers Care Gis Web Developer Name Role Phone Francie Whitten MD Primary Care Provider [phone] Allergies Active AllergyReactionsCriticalityNoted DateCommentsShellfish Containing QrgsdgowYrges32/12/2025 Medications MedicationSigDispense QuantityRefillsLast FilledStart DateEnd DateStatus aspirin 81 mg EC tablet Take 81 mg by mouth in the morning.Active atorvastatin (Lipitor) 10 mg tablet Take 10 mg by mouth in the morning.5Active vit C/E/Zn/coppr/lutein/zeaxan (PRESERVISION AREDS-2 ORAL) Take by mouth.Active glucosamine-chondroitin (Osteo Bi-Flex) 250-200 mg tablet Take by mouth.Active Active Problems ProblemNoted DateDiagnosed DateOtalgia, left3BMI 40.0-44.9, adult 03/06/2023OSA (obstructive sleep apnea)03/06/2023 Overview (07/14/2025): compliant with results improve, over 97% compliant fax note to [phone] attn PAP DEPT I have reviewed the objective evidence of adherence to therapy History of laparoscopic bbkdqxahjcquvqg98/28/2023Mixed adpgamsjhfvtui76/28/2023 Encounters DateTypeDepartmentCare CtxsTgzizizfwbp90/12/2025 11:45 AM ESTOffice Visit [facility] [address] [place] [address] Aristeo Baker MD Preop cardiovascular exam (Primary Dx); RBBB; Shortness of breath; Mixed hyperlipidemiafrom Last 3 Months Family History Medical HistoryRelationNameCommentsCABGMotherCancerMotherHeart attackMotherHeart diseaseMotherCABGMother's SisterHeart diseaseMother's SisterRelationNameStatus CommentsMotherMother's Sister Social History Tobacco UseTypesPacks/DayYears UsedDateSmoking Tobacco: NeverSmokeless Tobacco: Never Tobacco Cessation:Counseling Given: Not Answered CommentsUnknownSex and Gender InformationValueDate RecordedSex Assigned at MtunhRznjed62/08/2025 11:04 AM ESTLegal OhzFnxkto51/08/2025 9:07 AM ESTGender UjnldahfKzyirh15/08/2025 11:04 AM ESTSexual OrientationHeterosexual or Straight 07/10/2025 11:04 AM EST Last Filed Vital Signs Vital SignReadingTime TakenCommentsBlood Lkwzgznt263/7607/14/2025 12:19 PM EST Kkqvl488307/14/2025 12:19 PM ESTTemperature--Respiratory Rate--Oxygen Saturation 97%07/14/2025 12:19 PM ESTInhaled Oxygen Concentration--Cslany74.2 kg (212 lb) 07/14/2025 12:19 PM ZWPMmyhha701.9 cm (5' 1 )07/14/2025 12:19 PM ESTBody Mass Index40.0607/14/2025 12:19 PM EST Plan of Treatment Health MaintenanceDue DateLast DoneCommentsCT Bsmldptdksmc1955Colonoscopy 1955FOBT1955Medicare Annual Wellness (AWV)1955Sigmoidoscopy 1955Depression Trmeweqbt49/19/1967Fall Risk Exybfvhnd14/19/2020FIT /OVID-19 Vaccine ( season)509/11/2024, 11/08/2024, 04/24/2024, Additional history bcfjmkRfwijhuof77/03/202707/10/2024 Colorectal Cancer Qfwxpptrf47/15/2027FIT-DNA, 03/13/2021, 03/03/2018Adult Unapbjc96, 01/22/2002Zoster VaccinesCompleted 01/06/2019, 08/15/2018, 07/18/2015Pneumococcal Vaccine: 50+ YearsCompleted 06/05/2021, 05/21/2020Influenza LadjhcwHhfsoessq10/04/2025, 04/24/2024, 05/14/2023, Additional history existsHIB VaccinesAged OutNo longer eligible based on patient's age to complete this topicHPV VaccinesAged OutNo longer eligible based on patient's age to complete this topicIPV VaccinesAged OutNo longer eligible based on patient's age to complete this topicMeningococcal B VaccineAged OutNo longer eligible based on patient's age to complete this topic Meningococcal VaccineAged OutNo longer eligible based on patient's age to complete this topicRotavirus VaccinesAged OutNo longer eligible based on patient's age to complete this topic Insurance Care Teams Team MemberRelationshipSpecialtyStart DateEnd Date Francie Whitten MD [address] [place] [address] PCP - GeneralInternal Vzmyvjzg23/12/25
--- NOTE | 2025-07-21 18:16 | PM.STRESS ---
Stress Test Stress Test Allergies Allergy/AdvReac Type Severity Reaction Status Date / Time adhesive tape Allergy skin Verified 06/26/25 09:28 irritation shellfish derived Allergy throat Verified 06/26/25 09:28 swelling Requesting physician: SRIDEVI BAY Procedure: This was a Treadmill stress test with myocardial perfusion imaging performed at the [facility] on 07/21/2025. Intravenous line was secured. The patient was attached to electrocardiographic monitoring. Baseline vital signs and ECG were obtained. The patient exercised on the treadmill according to the modified Curtis protocol. Cardiolite was administered at peak exercise. The patient then went on to obtain myocardial perfusion imaging. Resting heart rate was 73 bpm and peak heart rate was 129 bpm, representing 86% of maximal predicted heart rate. Resting blood pressure was 130/80 and peak blood pressure was 182/92. General Information: Reason for Stress Test: Preoperative evaluation. Cardiac History and Risk Factors: Hyperlipidemia. Resting 12 - Lead Electrocardiogram: Sinus rhythm, right bundle branch block. Stress Test: Protocol: Modified Curtis protocol. Exercise Capacity:Poor. Blood Pressure Response: Resting hypertension, exaggerated blood pressure response to exercise. Rhythm: Sinus rhythm with frequent PVCs. ST - Response: No ST changes. Patient Response: No symptoms. Interpretation: 1. No evidence of ischemic ST changes seen during treadmill exercise. 2. Myocardial perfusion images will be reported separately.
== END 2025-07-21 07:22 | disposition home or self-care (01) ==
LOC: NM 07:21
PROVIDERS: Family Provider Family Medicine; PCP Family Medicine; Visit Provider Internal Medicine Interventional Cardiology
DX: Z01.810 Encounter for preprocedural cardiovascular examination (principal); R06.02 Shortness of breath
CPT/HCPCS: 78452; 93017; A9500